=== PATIENT | female | born 1955 | race Caucasian/White ===

== ENCOUNTER 2016-03-03 11:42 | Emergency (ER) | payer OTHER ==
[~2016-03-03] VITALS: Ht 170.2 cm; Wt 77.1 kg
[~2016-03-03 11:42] MED LIST: ASPI-484 PO; CLOP75TA52 PO; LEVO125T PO; LISI10TA2 PO; METO50TA4 PO; SIMV40TA PO; SIMV80TA PO
--- NOTE | 2016-03-03 11:46 | NUR ---
ARRIVAL PATIENT ARRIVED TO ED3 VIA W/C, C/O OF CHEST PAIN AND SHORTNESS OF BREATH TODAY, PATIENT STATES SHE HAS SEEN DOCTOR MAGGI AND STENTS PLACED LAST IN OCT. CHEST PAIN CONTINUED,CAME TO ED FOR FURTHER EVAL BY EDP. NO DISTRESS NOTED, NO ASPIRIN OR MORPHINE GIVEN DUE TO ALLERGIES.
--- NOTE | 2016-03-03 11:50 | ER.PDOC ---
General Chief Complaint: Requesting Medical Care Stated Complaint: CP Time seen by MD: 11:46 Source: patient Exam Limitations: no limitations History of Present Illness Initial Comments Chest discomfort for the last several days, today she developed chest pain, radiation to jaw and shoulders at times. now only tightness on her chest, some SOB and nausea Timing/Duration: 1-3 hours Severity/Quality: moderate Radiation: jaw, arms, neck, shoulders Prior CP/Workup: Cardiac Cath Nitro Today/Relief: No Nitro Taken Today Aspirin Today: No Aspirin Today Associated Symptoms: nausea/vomiting, shortness of breath Prior symptoms/Treatment: Similar symptoms previous Allergies: Coded Allergies: aspirin (Verified Allergy, Unknown, Swelling, 04/07/15) morphine (Verified Allergy, Unknown, ITCHING, 04/07/15) Home Meds Active Scripts Simvastatin (Zocor)80 Mg Tablet1 Tab PO DAILY #30 TAB Ref 4 Prov:ANNI TURNER MD 11/21/15 Reported Medications Clopidogrel Bisulfate (Plavix)75 Mg Tablet1 Tab PO DAILY ANTIPLATELET #90 TAB Ref 1 04/10/15 Aspirin (Aspir 81)81 Mg Tablet.dr1 Tab PO DAILY #30 TAB Ref 5 04/10/15 Levothyroxine Sodium (Synthroid)125 Mcg Tablet1 Tab PO DAILY THYROID #30 TAB Ref 5 04/10/15 Lisinopril 10 Mg Tablet1 Tab PO DAILY BLOOD PRESSURE #30 TAB Ref 5 04/10/15 Metoprolol Succinate (Toprol Xl)50 Mg Tab.er.24h1 Tab PO DAILY BLOOD PRESSURE # 30 TAB Ref 5 04/10/15 Past Medical History Surgical History: cardiac cath, appendectomy, neck, stent, shoulder Constitutional: see HPI EENTM: see HPI Respiratory: see HPI Cardiovascular: see HPI Gastrointestinal: see HPI Genitourinary: see HPI Musculoskeletal: see HPI Skin: see HPI Psychiatric/Neurological: see HPI Endocrine: see HPI Hematologic/Lymphatic: see HPI Physical Exam General Appearance: No Apparent Distress, WD/WN HEENT: PERRL/EOMI, Normal ENT Inspection, TMs Normal, Pharynx Normal Neck: Non-Tender, Full Range of Motion, Supple, Normal Inspection Respiratory: chest non-tender, lungs clear, normal breath sounds, no respiratory distress, no accessory muscle use Cardiovascular: Normal Peripheral Pulses, Regular Rate, Rhythm, No Edema, No Gallop, No JVD, No Murmur Gastrointestinal: Normal Bowel Sounds, No Organomegaly, No Pulsatile Mass, Non Tender, Soft Extremities: Normal Range of Motion, Non-Tender, Normal Inspection, No Pedal Edema, No Calf Tenderness, Normal Capillary Refill Neurologic/Psychiatric: 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
--- NOTE | 2016-03-03 11:51 | NUR ---
LAB LAB AT BEDSIDE
--- NOTE | 2016-03-03 11:51 | NUR ---
RESPIRATORY RESPIRATORY AT BEDSIDE
[2016-03-03] MEDS ORDERED: NITROSTAT SL PRN (12:00)
[2016-03-03 12:08] LABS: BASOPHIL % 0.3 % (0.0-0.2); EOSINOPHIL # 0.2 10^3/uL (0.0-0.2); EOSINOPHIL % 2.3 % (0.0-5.0); HEMOGLOBIN 13.8 g/dL (12.0-15.0); LYMPHOCYTES # 2.1 10^3/uL (1.0-4.8); LYMPHOCYTES % 30.7 % (24.0-44.0); MEAN CELL HGB CONCENTRATION 32.9 g/dL (33-37); MEAN CORP VOLUME 94.2 fL (78-100); MEAN PLATELET VOLUME 10.9 fL (7.8-11.0); MONOCYTES # 0.5 10^3/uL (0.3-0.8); MONOCYTES % 7.5 % (5.0-12.0); NEUTROPHIL # 4.1 10^3/uL (1.8-7.7); NEUTROPHILS % 59.1 % (41.0-85.0); RED CELL DISTRIBUTION WIDTH 12.4 % (11.5-14.5); WHITE BLOOD CELL 6.9 10^3/uL (4.5-11.0)
[2016-03-03 12:35] LABS: CARBON DIOXIDE 25.6 mmol/L (20.0-32); GLUCOSE 121 mg/dL (70-110)
[2016-03-03 12:36] LABS: ALANINE AMINOTRANSFERASE(ML) 23 U/L (12-78); ALKALINE PHOSPHATASE 65 U/L (50-136); ASPARTATE AMINO TRANSFERASE 18 U/L (0-35); CALCIUM 8.5 mg/dL (8.4-10.5)
--- NOTE | 2016-03-03 12:42 | DIREP ---
PROCEDURE:CHEST 1 VIEW COMPARISON:[facility], CR, XRAY CHEST SINGLE VW, 11/18/2015, 03:14 PM. INDICATIONS:CP FINDINGS: LUNGS/PLEURA:No significant pulmonary parenchymal abnormalities. No effusions. VASCULATURE:Normal. Unremarkable pulmonary vasculature. CARDIAC:Normal. No cardiac silhouette abnormality or cardiomegaly. MEDIASTINUM:Normal. No visible mass or adenopathy. BONES:Previously resected right clavicular head. OTHER:Negative. CONCLUSION:No acute cardiopulmonary process. Dictated by: Jared Godwin M.D. on 03/03/2016 at 12:41 PM
--- NOTE | 2016-03-03 12:52 | NUR ---
DR MAGGI MONTANO ON THE PHONE WITH DR TAY
[2016-03-03 13:01] VITALS: BP 136/86
--- NOTE | 2016-03-03 13:01 | NUR ---
IV 20G TO RIGHT INNER WRIST D/C'D TIP INTACT, NO SIGN OF INFILTRATION NOTED. AWAITING DISCHARGE INSTRUCTIONS.
[2016-09-10] MEDS ORDERED: [UNRECOGNIZED DRUG - CODE] PO (11:45)
== END 2016-03-03 13:05 | disposition home or self-care (01) ==
LOC: ER 11:42
DX: R07.9 Chest pain, unspecified (principal); R11.2 Nausea with vomiting, unspecified; Z88.6 Allergy status to analgesic agent; Z88.5 Allergy status to narcotic agent; Z79.82 Long term (current) use of aspirin; Z79.899 Other long term (current) drug therapy
CPT/HCPCS: 36415; 71010; 80053; 82550; 83880; 84484; 85025; 85610; 85730; 93005; 99285; 71045

== ENCOUNTER 2016-09-10 11:00 | Inpatient (IN) | payer SELFPAY ==
[~2016-09-10] VITALS: Ht 170.2 cm; Wt 79.8 kg
[~2016-09-10 11:00] MED LIST changes: +CLOP75TA22 PO; -CLOP75TA52 PO
[2016-09-10] MEDS ORDERED: BUSP10TA PO (11:45)
[2016-09-10] MEDS ORDERED: SERT100T PO (11:45)
[2016-09-10] MEDS ORDERED: FAMO-75 PO (11:45)
[2016-09-10] MEDS ORDERED: TRAZ50TA18 PO (11:45)
[2016-09-10] MEDS ORDERED: [UNRECOGNIZED DRUG - CODE] PO (11:45)
[2016-09-10 12:01] VITALS: BP 129/72
[2016-09-10 12:45] LABS: BASOPHIL % 0.6 % (0.0-0.2); EOSINOPHIL # 0.1 10^3/uL (0.0-0.2); EOSINOPHIL % 1.7 % (0.0-5.0); HEMATOCRIT 44.7 % (36.0-46.0); HEMOGLOBIN 15.1 g/dL (12.0-15.0); LYMPHOCYTES # 2.6 10^3/uL (1.0-4.8); LYMPHOCYTES % 38.8 % (24.0-44.0); MEAN CELL HGB 31.5 pg (26-34); MEAN CELL HGB CONCENTRATION 33.8 g/dL (33-37); MEAN CORP VOLUME 93.1 fL (78-100); MONOCYTES # 0.5 10^3/uL (0.3-0.8); MONOCYTES % 7.3 % (5.0-12.0); NEUTROPHIL # 3.4 10^3/uL (1.8-7.7); NEUTROPHILS % 51.4 % (41.0-85.0); RED CELL DISTRIBUTION WIDTH 12.9 % (11.5-14.5); WHITE BLOOD CELL 6.6 10^3/uL (4.5-11.0)
--- NOTE | 2016-09-10 12:48 | DIREP ---
PROCEDURE:CHEST 2 VIEWS COMPARISON:[facility], CR, XRAY CHEST SINGLE VW, 03/03/2016, 11:42 AM. INDICATIONS:PRE OP LAVH FINDINGS: LUNGS/PLEURA:No significant pulmonary parenchymal abnormalities. No effusions. VASCULATURE:Normal. Unremarkable pulmonary vasculature. CARDIAC:Normal. No cardiac silhouette abnormality or cardiomegaly. MEDIASTINUM:Normal. No visible mass or adenopathy. BONES:Acromioplasty of the distal right clavicle is again noted. OTHER:Negative. CONCLUSION:No active or acute cardiopulmonary disease is seen. Dictated by: Camacho Amador M.D. on 09/10/2016 at 12:47 PM
[2016-09-10 13:05] LABS: BILIRUBIN,URINE NEGATIVE (NEGATIVE); UROBILINOGEN,URINE NORMAL (NEGATIVE)
[2016-09-10 13:28] LABS: APPEARANCE,URINE CLEAR (CLEAR); UA COLOR YELLOW (YELLOW)
[2016-09-10 13:35] LABS: CALCIUM 9.4 mg/dL (8.4-10.5); CARBON DIOXIDE 27.8 mmol/L (20.0-32)
[2016-09-10 14:01] LABS: WBC,URINE TNTC WBC/HPF (0-2)
[2016-09-16] VITALS (22 sets, daily range): BP systolic 84–140; BP diastolic 40–88
--- NOTE | 2016-09-16 01:38 | NUR ---
PAIN REASSESSMENT Patient lying in bed and resting - Patient reports pain medication effective and denies the need foor.
[2016-09-16] MEDS ORDERED: ANCEF ONE (05:19)
[2016-09-16] MEDS ORDERED: NS 100ML 100 ML IV ONE ×2 (05:20→07:22)
[2016-09-16] MEDS: LACTATED RINGERS 1,000 ML IV SCH ×2 (05:53→15:35)
[2016-09-16] MEDS ORDERED: ANCEF 1 GM in NS 100ML 100 ML IV ONE (06:00)
[2016-09-16] MEDS ORDERED: SODIUM CHLORIDE IR ONE (07:22)
[2016-09-16] MEDS ORDERED: TORADOL ONE ×3 (07:33→17:19)
[2016-09-16] MEDS ORDERED: ZEMURON IV ONE (07:33)
[2016-09-16] MEDS ORDERED: XYLOCAINE ONE (07:33)
[2016-09-16] MEDS ORDERED: DECADRON ONE (07:33)
[2016-09-16] MEDS ORDERED: DILAUDID ONE (07:34)
[2016-09-16] MEDS ORDERED: VERSED ONE (07:34)
[2016-09-16] MEDS ORDERED: NEOSTIGMINE ONE (07:34)
[2016-09-16] MEDS ORDERED: SUBLIMAZE ONE (07:34)
[2016-09-16] MEDS ORDERED: ZOFRAN ONE (07:34)
[2016-09-16] MEDS ORDERED: QUELICIN ONE (07:34)
[2016-09-16] MEDS ORDERED: DIPRIVAN IV ONE (07:35)
[2016-09-16] MEDS ORDERED: DURAMORPH ONE (07:35)
[2016-09-16] MEDS ORDERED: SODIUM CHLORIDE IRR BAG 1,000 ML ONE (08:47)
[2016-09-16] MEDS ORDERED: SENSORCAINE-MPF 0.5% VIAL ONE (08:47)
[2016-09-16] MEDS ORDERED: OXY-IR PO PRN (09:30)
[2016-09-16] MEDS ORDERED: BUSPAR PO PRN (09:30)
--- NOTE | 2016-09-16 09:30 | PRM.CONS ---
History of Present Illness Reason for Consultation: perioperative cardiac evaluation History of Present Illness this is a 61-year-old lady with extensive coronary artery disease, hypertension , hyperlipidemia and history of prior smoking. Most recent cardiac intervention was a mentoplasty performed in October 2015. Patient is admitted under Dr. Howard's care for mesh repair procedure under [place]. The patient was seen and evaluated preoperatively, clearance was given. Patient has been off anticoagulation 5-7 days prior to the procedure. She was stable without symptoms, the patient's operative cardiac risk profile is considered mild to moderate. Past Medical History Cardiovascular: CAD, HTN Pulmonary: Asthma, Bronchitis, COPD Renal/: Chronic Renal Insuff ( mild) Ab: Cooperative/Pleasant Hx Last Menstrual Period: OCCASIONAL BLEEDING D/T INFECTED MESH Past Social History Smoke: Quit ( history of extensive smoking the past) Alcohol: rare Lives: with Family Travel Hx EBOLA RISK:Travel to/contact w: No Review of Systems ENT: No: Ear pain, Ear discharge, Nose pain, Nose discharge, Nose congestion, Mouth pain, Mouth swelling, Throat pain, Throat swelling, Other Respiratory: No: Cough, Dry, Shortness of breath, SOB with excertion, Wheezing , Hemoptysis, Pleuritic Pain, Sputum, Wheezing, Other Cardiovascular: No: Chest Pain, Palpitations, Orthopnea, Paroxysmal Noc. Dyspnea, Edema, Lt Headedness, Other Allergies: Coded Allergies: aspirin (Verified Allergy, Severe, Anaphylaxis Shock, 09/10/16) Scheduled Clopidogrel Bisulfate (Plavix), 1 TAB PO DAILY, (Reported) Famotidine (Pepcid), 1 TAB PO BIDAC, (Reported) Levothyroxine Sodium (Synthroid), 1 TAB PO DAILY, (Reported) Lisinopril (Lisinopril), 1 TAB PO DAILY, (Reported) Metoprolol Succinate (Toprol Xl), 1 TAB PO DAILY, (Reported) Sertraline Hcl (Zoloft), 1 TAB PO DAILY, (Reported) Simvastatin (Zocor), 1 TAB PO DAILY Trazodone Hcl (Trazodone Hcl), 1 TAB PO HS, (Reported) Scheduled PRN Buspirone Hcl (Buspirone Hcl), 1 TAB PO BID PRN for ANXIETY, (Reported) Oxycodone Hcl/Acetaminophen (Percocet 7.5-325 Mg Tablet), 1 TAB PO QID PRN for PAIN, (Reported) Discontinued Medications Aspirin (Aspir 81), 1 TAB PO DAILY, (Reported) Discontinued Reason: No Longer Taking VTE VTE Risk Total Score: >5 VTE Risk Score VTE Risk: Score 0-1 = Low Risk (Aggressive mobilization; early ambulation; no VTE prophylaxis required) Score 2: Moderate Risk (Intermittent/Pneumatic Compression Device OR Lovenox/Heparin/Coumadin) Score 3-4: High Risk (Intermittent/Pneumatic Compression Device AND Lovenox/Heparin/Coumadin) Score > or =5: Highest Risk (Intermittent/Pneumatic Compression Device AND Lovenox/Heparin/Coumadin) VTE VTE Present on Admission: No Currently receiving anticoagul: No VTE Risk Total Score: >5 Exam Vital Signs Vital Signs Date Time Temp Pulse Resp B/P (MAP) Pulse Ox O2 Delivery O2 Flow Rate FiO2 09/16/16 05:42 Room Air 09/16/16 05:42 97.7 66 18 130/81 (97) 94 General Appearance: Alert, Oriented X3, Cooperative HEENT: Atraumatic, PERRLA Respiratory: Clear to auscultation ( find diffuse rhonchi), Normal air movement Cardiovascular: Regular rate, Normal S1, Normal S2 Abdominal: Normal bowel sounds, No tenderness Extremities: No clubbing, No cyanosis, No edema Skin: No breakdown Assessment/Plan Assessment/Plan Assessment/Plan - okay to proceed with gynecology procedure. - Notable UTI on preoperative - UA -please resume cardiac medications postoperatively in the absence of any contraindication thank you Dr. Howard for your kind consultation Problems: Patient History: Cerebrovascular disorder 32 MOTHER Chronic obstructive pulmonary disease 32 MOTHER FH: coronary artery disease 32 MOTHER G8 BROTHER FH: heart attack 32 MOTHER Hypertension 32 MOTHER G8 BROTHER No known health problems 33 FATHER, , Age:58 G8 BROTHER G8 BROTHER G8 BROTHER G8 BROTHER G8 SISTER G8 SISTER 19 CHILD 19 CHILD 19 CHILD No Family History of: Alzheimer's disease Asthma Congestive heart failure Diabetes insipidus Diabetes mellitus Parkinson's disease ANNI TAY MD Sep 16, 2016 09:30
[2016-09-16] MEDS ORDERED: PREMARIN VG ONE (09:55)
[2016-09-16] MEDS: ZOLOFT PO SCH (10:24)
[2016-09-16] MEDS ORDERED: TYLENOL PO PRN (10:30)
[2016-09-16] MEDS ORDERED: SUBLIMAZE IV PRN (11:30)
[2016-09-16] MEDS ORDERED: NORCO 5 MG PO PRN ×2 (11:30)
[2016-09-16] MEDS ORDERED: TRANDATE IV PRN (11:30)
[2016-09-16] MEDS ORDERED: ZOFRAN IV PRN (11:30)
[2016-09-16] MEDS ORDERED: DILAUDID IV PRN (11:30)
--- NOTE | 2016-09-16 11:40 | NUR ---
REC FROM PACY PT TO ROOM 325 FROM PACU. AWAKE, ALERT O X3. SKIN PINK W/D. HR REG. IV OF LR PLACED ON PUMP AND INF AT 125 MLS/HR. SITE RT HAND 20 CLEAR. ABD WITH 3 PUNCTURE SITES COVERED WITH DERMABOND, CLEAR WITH NO BLEEDING. BS HYPO. MOD AMT VB. PAD CHANGED AND PERICARE GIVEN. CONCEPCION PATENT AND DRAINING CLEAR YELLOW URINE. SCD'S ON BILAT AND CONNECTED TO PUMP AND ON AT THIS TIME. DENIES PAIN. O2 ON AT 2 L N/C. B/P CUFF CONNECTED AND SET FOR Q 15 MIN AND ALARMS SET. CONT O2 SAT MONITOR IN PLACE WITH SATS AT 94% ON O2.ORIENTED TO ROOM. SR UP X 2 AND CL IN REACH. FAMILY IN TO ROOM AT THIS TIME.
--- NOTE | 2016-09-16 12:00 | NUR ---
ICE CHIPS SERVED.
--- NOTE | 2016-09-16 13:00 | NUR ---
DR. ROLON HERE IN TO SEE PT AND DISCUSS SURGERY.PT AND FAMILY VOICE UNDERSTANDING.
[2016-09-16] MEDS ORDERED: MORPHINE SULFATE ONE ×4 (13:09→22:25)
[2016-09-16] MEDS ORDERED: EPHEDRINE SULFATE ONE (13:13)
[2016-09-16] MEDS: MORPHINE SULFATE IV PRN ×3 (13:15→22:30)
--- NOTE | 2016-09-16 13:15 | NUR ---
PAIN MED GIVEN PERICARE GIVEN. SMALL AMT OF VB. PAD CHANGED. REPOS FOR COMFORT. IS DONE UP TO 1200 X 5. QUENTIN WELL. MORPHINE 2 MG IVP GIVEN FOR C/O PAIN 09/06. C/O FEELING LOTS OF PRESSURE. REMINDED PT SHE HAS VAGINAL PACKING IN.
--- NOTE | 2016-09-16 14:30 | NUR ---
VISITING WITH FAMILY. DENIES PAIN OR NEEDS. SIPPING TEA.
[2016-09-16] MEDS ORDERED: LACTATED RINGERS 1,000 ML ONE ×2 (15:10→23:46)
--- NOTE | 2016-09-16 15:30 | NUR ---
PERICARE PAD CHANGED WITH SMALL AMT VB. PANTIES ON. ALSO HAD SMALL AMT OF BLEEDING FROM UMBILICAL PUNCTURE SITE. GOWN CHANGED AND SITE COVERED WITH 4X4 AND PAPER TAPE. REPOS IN BED. IS DONE. CONCEPCION EMPTIED OF 300 ML CLEAR YELLOW URINE. 1000 ML LR UP AND IVPB ANCEF HUNG. DECLINED PEPCID.
[2016-09-16] MEDS: ANCEF 1 GM in NS 100ML 100 ML IV SCH (15:34)
[2016-09-16] MEDS: PEPCID PO SCH (16:08)
[2016-09-16] MEDS: TORADOL IV SCH (17:27)
--- NOTE | 2016-09-16 17:30 | NUR ---
DR. ROLON HERE IN TO SEE PT AND FAMILY. POC DISCUSSED. INFORMED OF BLEEDING FROM PUNCTURE AT UMBILICUS EARLIER AND COVERED WITH 4X4 WITH NO FURTHER BLEEDING NOTED. ALSO PT WANTS TO GET UP LATER AND WALK IN LR. DR. ROLON STATES SHE MAY GET UP LATER THIS EVENING WITH ASSIST. VISITING WITH FAMILY NOW.
--- NOTE | 2016-09-16 17:45 | NUR ---
CL LIQ DIET SERVED.
--- NOTE | 2016-09-16 19:00 | NUR ---
REPORT Received report from Lawanda Coles, ANDREW - transfer of patient care.
--- NOTE | 2016-09-16 19:00 | NUR ---
REPORT GIVEN PT READY FOR PAIN MED.
[2016-09-16] MEDS ORDERED: MORPHINE SULFATE IV ONE (19:18)
--- NOTE | 2016-09-16 19:18 | NUR ---
ASSESSMENT - PAIN RN VS taken and assessment complete. Patient requesting pain medication for lower abd and pelvic cramping area of an 8 on a scale of 1-10 . Patient given 2 mg morphine
--- NOTE | 2016-09-16 19:35 | NUR ---
PAIN MED EFFECTIVE Patient reports pain medication effective at this time. Lying in bed resting - Call light with in reach - Reinforced fall precautions since patient post op day1. Patient verbalized understanding of all.
--- NOTE | 2016-09-16 20:15 | NUR ---
AMBULATION - BORA CARE Assisted patient up to bathroom - Bora care given - Pads changed - Assisted patient back to bed. Patient denies any further needs at this time.
[2016-09-16] MEDS ORDERED: ZOCOR PO SCH (21:00)
[2016-09-16] MEDS ORDERED: DESYREL PO SCH (21:00)
[2016-09-16] MEDS ORDERED: ZOCOR ONE ×2 (22:00→22:02)
[2016-09-16] MEDS ORDERED: DESYREL ONE (22:03)
--- NOTE | 2016-09-16 22:30 | NUR ---
C/O PAIN AT "6", MORPHINE 2MG IVP ADMINISTERED
--- NOTE | 2016-09-16 22:45 | NUR ---
VERBALIZES ANALGESIA EFFECTIVE
[2016-09-16] MEDS ORDERED: ULTRAM ONE (23:40)
[2016-09-17] MEDS ORDERED: TORADOL ONE ×3 (00:11→11:25)
[2016-09-17 00:15] VITALS: BP 89/40
[2016-09-17] MEDS: ANCEF 1 GM in NS 100ML 100 ML IV SCH ×2 (00:18→08:00)
[2016-09-17] MEDS: TORADOL IV SCH ×3 (00:18→11:49)
--- NOTE | 2016-09-17 00:18 | NUR ---
ANCEF, NEW BAG OF LR, AMBULATION Scheduled ancef given and new bag of LR initiated - Patient also given scheduled Toradol - Midnight VS taken - Patient assisted with repositioning to right lateral side with pillow beteen legs for comfort. Denies an further needs.
--- NOTE | 2016-09-17 02:15 | NUR ---
SLEEPING Patient appears to be sleeping - Resp even and non labored - No S/S of distress noted.
[2016-09-17 04:10] VITALS: BP 105/46
--- NOTE | 2016-09-17 04:10 | NUR ---
VS VS taken
--- NOTE | 2016-09-17 05:17 | NUR ---
LAB Lab here to draw blood.
[2016-09-17 05:34] LABS: BASOPHIL % 0.1 % (0.0-0.2); HEMATOCRIT 31.2 % (36.0-46.0); HEMOGLOBIN 10.4 g/dL (12.0-15.0); LYMPHOCYTES % 18.8 % (24.0-44.0); MEAN CELL HGB 31.6 pg (26-34); MEAN CELL HGB CONCENTRATION 33.3 g/dL (33-37); MEAN CORP VOLUME 94.8 fL (78-100); MEAN PLATELET VOLUME 10.8 fL (7.8-11.0); MONOCYTES # 0.7 10^3/uL (0.3-0.8); MONOCYTES % 6.8 % (5.0-12.0); NEUTROPHIL # 7.7 10^3/uL (1.8-7.7); NEUTROPHILS % 74.1 % (41.0-85.0); RED CELL DISTRIBUTION WIDTH 12.3 % (11.5-14.5); WHITE BLOOD CELL 10.4 10^3/uL (4.5-11.0)
--- NOTE | 2016-09-17 05:40 | NUR ---
REMOVAL CONCEPCION CATHETER Concepcion balloon deflated 10cc fluid - Concepcion catheter removed using aseptic technique. 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 Denies any further needs or questions.
--- NOTE | 2016-09-17 06:43 | NUR ---
REPORT Report given to day shift. Lawanda Coles RN
--- NOTE | 2016-09-17 07:00 | NUR ---
RESTING WITH EYES CLOSED. RESP REG. O2 IS OFF. IV PATENT. NO DISTRESS NOTED.
[2016-09-17 07:15] VITALS: BP 112/47
[2016-09-17 07:30] VITALS: BP 112/60
--- NOTE | 2016-09-17 07:30 | NUR ---
VS AND POT BUILDER COMPLETED.
--- NOTE | 2016-09-17 07:45 | NUR ---
UP TO B/R VOIDED WITHOUT DIFFICULTY. PERICARE DONE. PAD CHANGED. SCANT VB. STILL HAS PACKING IN. AMB BACK TO CHAIR. QUENTIN WELL.
--- NOTE | 2016-09-17 07:55 | NUR ---
ANCEF IV GIVEN ORDERED.
[2016-09-17] MEDS ORDERED: PEPCID ONE (07:59)
[2016-09-17] MEDS: PEPCID PO SCH (08:00)
--- NOTE | 2016-09-17 08:00 | NUR ---
BKF SERVED SITTING UP IN CHAIR FOR REG BKF TRAY.
[2016-09-17] MEDS ORDERED: SYNTHROID ONE (08:05)
[2016-09-17] MEDS ORDERED: TOPROL XL PO ONE (08:06)
[2016-09-17] MEDS ORDERED: ZESTRIL ONE (08:12)
[2016-09-17] MEDS ORDERED: ZOLOFT ONE (08:12)
[2016-09-17] MEDS ORDERED: PLAVIX ONE (08:13)
--- NOTE | 2016-09-17 08:30 | NUR ---
AMB IN HALLS QUENTIN WELL. BACK TO ROOM AND SITTING UP IN CHAIR. COFFEE SERVED. DENIES NEEDS.
[2016-09-17] MEDS ORDERED: NORCO 5 MG PO ONE (08:37)
--- NOTE | 2016-09-17 08:37 | NUR ---
NORCO 5/325 TWO GIVEN FOR PAIN PRIOR TO VAG PACKING BEING REMOVED. VISITING IN ROOM WITH DAUGHTER.
[2016-09-17] MEDS: ZOLOFT PO SCH (08:41)
[2016-09-17] MEDS ORDERED: ZESTRIL PO SCH (09:00)
[2016-09-17] MEDS ORDERED: TOPROL XL PO SCH (09:00)
[2016-09-17] MEDS ORDERED: SYNTHROID PO SCH (09:00)
[2016-09-17] MEDS ORDERED: PLAVIX PO SCH (09:00)
--- NOTE | 2016-09-17 09:00 | NUR ---
HOLD PLAVIX UNTIL PACKING IS REMOVED NEW INSTRUCTIONS FROM DR. ROLON. ALL OTHER AM MEDS WERE GIVEN.
--- NOTE | 2016-09-17 09:31 | NUR ---
UP TO B/R VOIDING WITHOUT DIFFICULTY. BACK TO BED TO REST. DENIES PAIN OR NEEDS.
--- NOTE | 2016-09-17 10:13 | NUR ---
DR. ROLON HERE VAG PACKING REMOVED. PERICARE GIVEN. PAD AND PANTIES ON. MAY GIVE PLAVIX.
--- NOTE | 2016-09-17 10:15 | NUR ---
PLAVIX GIVEN. PT UP TO B/R. VOIDING WITHOUT DIFFICULTY. SCANT VB. PERICARE DONE. PAD AND PANTIES ON.
--- NOTE | 2016-09-17 11:00 | NUR ---
STATUS ISITORS HERE. PT UP TO AMB IN HALLS. QUENTIN WELL.
--- NOTE | 2016-09-17 12:00 | NUR ---
TORADOL GIVEN LUNCH SERVED.
[2016-09-17 12:30] VITALS: BP 88/64
--- NOTE | 2016-09-17 13:00 | NUR ---
DR. ROLON HERE. IN TO SEE HOW PT IS FEELING. STATES HE WILL COME BACK THIS AFTERNOON AND LET PT GO HOME. PT UP TO WALK IN HALLS AGAIN. DENIES PAIN OR NEEDS.
[2016-09-17 13:26] VITALS: BP 100/60
--- NOTE | 2016-09-17 14:55 | NUR ---
DR. ROLON HERE. PT MAY GO HOME. RX FOR ABX SENT TO WMT. STATES SHE HAS ENOUGH PAIN PILLS TO LAST FOR A WEEK AND IF NOT PT'S DAUGHTER WILL RETURN TO OFFICE AND GET ANOTHER RX. PT WILL CALL TO SCHEDULE POST OP APPT FOR ONE WEEK. INSTRUCTED NO TUB BATHS OR SWIMMING. VOICES UNDERSTANDING OF ALL INSTRUCTIONS DR. ROLON TOLD HER.
[2016-09-17] MEDS ORDERED: METR500T PO (15:03)
--- NOTE | 2016-09-17 15:04 | PRM.DC ---
Discharge Summary Date of Arrival on Unit: Sep 10, 2016 Patient History: Cerebrovascular disorder 32 MOTHER Chronic obstructive pulmonary disease 32 MOTHER FH: coronary artery disease 32 MOTHER G8 BROTHER FH: heart attack 32 MOTHER Hypertension 32 MOTHER G8 BROTHER No known health problems 33 FATHER, , Age:58 G8 BROTHER G8 BROTHER G8 BROTHER G8 BROTHER G8 SISTER G8 SISTER 19 CHILD 19 CHILD 19 CHILD No Family History of: Alzheimer's disease Asthma Congestive heart failure Diabetes insipidus Diabetes mellitus Parkinson's disease History Present Illness: General: Alert HEENT: Atraumatic Neck: Supple Lungs: Clear to auscultation Heart: Regular rate Abdomen: Normal bowel sounds Extremities: No clubbing Skin: No rashes Neuro: Normal gait Psych/Mental Status: Mental status NL Scheduled Clopidogrel Bisulfate (Plavix), 1 TAB PO DAILY, (Reported) Famotidine (Pepcid), 1 TAB PO BIDAC, (Reported) Levothyroxine Sodium (Synthroid), 1 TAB PO DAILY, (Reported) Lisinopril (Lisinopril), 1 TAB PO DAILY, (Reported) Metoprolol Succinate (Toprol Xl), 1 TAB PO DAILY, (Reported) Metronidazole (Flagyl), 500 MG PO BID Sertraline Hcl (Zoloft), 1 TAB PO DAILY, (Reported) Simvastatin (Zocor), 1 TAB PO DAILY Trazodone Hcl (Trazodone Hcl), 1 TAB PO HS, (Reported) Scheduled PRN Buspirone Hcl (Buspirone Hcl), 1 TAB PO BID PRN for ANXIETY, (Reported) Oxycodone Hcl/Acetaminophen (Percocet 7.5-325 Mg Tablet), 1 TAB PO QID PRN for PAIN, (Reported) Discontinued Medications Aspirin (Aspir 81), 1 TAB PO DAILY, (Reported) Discontinued Reason: No Longer Taking Course Blood Pressure Systolic: 100 Blood Pressure Diastolic: 60 Blood Pressure Mean: 72 QUINCY ROLON MD Sep 17, 2016 15:04
--- NOTE | 2016-09-17 15:05 | NUR ---
STATUS PT REQ TO HAVE MORPHINE BEFORE THE RIDE HOME. DR. ROLON NOTIFIED AND PT MAY HAVE ONE MORE DOSE OF MORPHINE PRIOR TO LEAVING.
[2016-09-17] MEDS ORDERED: MORPHINE SULFATE ONE (15:20)
--- NOTE | 2016-09-17 15:25 | NUR ---
MORPHINE 2 MG IVP GIVEN FOR PAIN PRIOR TO PT GOING HOME. SL DC'D INTACT
--- NOTE | 2016-09-17 16:00 | NUR ---
DISMISS PT DISMISSED IN W/C WITH DAUGHTER. STABLE CONDITION. DENIES PAIN.
== END 2016-09-17 16:00 | disposition home or self-care (01) | DRG 742 ==
LOC: LND 09-16 00:46
PROVIDERS: ADMIT Obstetrics & Gynecology; ATTEND Obstetrics & Gynecology
PROC: 0UT9FZZ Resection of Uterus, Via Natural or Artificial Opening With Percutaneous Endoscopic Assistance (ICD-10-PCS; principal; 2016-09-17)
PROC: 0UT7FZZ Resection of Bilateral Fallopian Tubes, Via Natural or Artificial Opening With Percutaneous Endoscopic Assistance (ICD-10-PCS; 2016-09-17)
PROC: 0WP Anatomical Regions, General, Removal (ICD-10-PCS; 2016-09-17)
DX: T83.711A Erosion of implanted vaginal mesh to surrounding organ or tissue, initial encounter (principal); N39.0 Urinary tract infection, site not specified; I25.10 Atherosclerotic heart disease of native coronary artery without angina pectoris; J44.9 Chronic obstructive pulmonary disease, unspecified; Z98.51 Tubal ligation status; Z90.89 Acquired absence of other organs; Z95.1 Presence of aortocoronary bypass graft; E78.5 Hyperlipidemia, unspecified; J45.909 Unspecified asthma, uncomplicated; I12.9 Hypertensive chronic kidney disease with stage 1 through stage 4 chronic kidney disease, or unspecified chronic kidney disease; N18.9 Chronic kidney disease, unspecified; F41.9 Anxiety disorder, unspecified; Z79.82 Long term (current) use of aspirin; Z82.49 Family history of ischemic heart disease and other diseases of the circulatory system; Z87.891 Personal history of nicotine dependence; Z88.6 Allergy status to analgesic agent; Z88.5 Allergy status to narcotic agent; Z88.8 Allergy status to other drugs, medicaments and biological substances
CPT/HCPCS: 36415; 71020; 80053; 81000; 85025; 85610; 85730; 87086; 88302; 88305; 88307; 93005; A4338; J0330; J0690; J1100; J1170; J1885; J2250; J2270; J2405; J3010; J3490; J7030; J7050; J7120; J2274; J2710

== ENCOUNTER 2016-12-12 10:18 | Inpatient (IN) | payer OTHER, SELFPAY ==
[~2016-12-12] VITALS: Ht 170.2 cm; Wt 83.0 kg
[~2016-12-12 10:18] MED LIST changes: +BUSP10TA PO; -CLOP75TA22 PO; +CLOP75TA52 PO; +FAMO-75 PO; +METR500T PO; +SERT100T PO; +TRAZ50TA18 PO; +[UNRECOGNIZED DRUG - CODE] PO
[2016-12-12] MEDS ORDERED: PLAVIX PO STA (10:40)
--- NOTE | 2016-12-12 10:44 | ER.PDOC ---
General Chief Complaint: Chest Pain-Cardiac Nature Stated Complaint: CHEST PAIN Time seen by MD: 10:41 Source: patient Exam Limitations: no limitations History of Present Illness Initial Comments Chest pain for 3-4 days, rash right face and posterior neck for 2 days. Radiation: no radiation Prior CP/Workup: Cardiac Cath, Echocardiography, Heart Attack Associated Symptoms: nausea/vomiting, shortness of breath Allergies: Coded Allergies: aspirin (Verified Allergy, Severe, Anaphylaxis Shock, 09/10/16) morphine (Verified Allergy, Severe, THROAT WILL CLOSE,STOP BREATHING, ) Home Meds Active Scripts Metronidazole (FLAGYL) 500 Mg Tablet, 500 MG PO BID for 7 Days, #20 TAB Prov:QUINCY ROLON MD 09/17/16 Simvastatin (ZOCOR) 80 Mg Tablet, 1 TAB PO DAILY, #30 TAB 4 Refills Prov:ANNI TURNER MD 11/21/15 Reported Medications Sertraline Hcl (ZOLOFT) 100 Mg Tablet, 1 TAB PO DAILY, #30 TAB 5 Refills 09/10/16 Famotidine (PEPCID) 20 Mg Tablet, 1 TAB PO BIDAC, #60 TAB 3 Refills 09/10/16 Oxycodone Hcl/Acetaminophen (PERCOCET 7.5-325 MG TABLET) 1 Each Tablet, 1 TAB PO QID Y for PAIN, #120 TAB 09/10/16 Buspirone Hcl (BUSPIRONE HCL) 10 Mg Tablet, 1 TAB PO BID Y for ANXIETY, #60 TAB 1 Refill 09/10/16 Trazodone Hcl (TRAZODONE HCL) 50 Mg Tablet, 1 TAB PO HS, #30 TAB 1 Refill 09/10/16 Clopidogrel Bisulfate (PLAVIX) 75 Mg Tablet, 1 TAB PO DAILY for ANTIPLATELET, # 90 TAB 1 Refill 04/10/15 Levothyroxine Sodium (SYNTHROID) 125 Mcg Tablet, 1 TAB PO DAILY for THYROID, # 30 TAB 5 Refills 04/10/15 Lisinopril (LISINOPRIL) 10 Mg Tablet, 1 TAB PO DAILY for BLOOD PRESSURE, #30 TAB 5 Refills 04/10/15 Metoprolol Succinate (TOPROL XL) 50 Mg Tab.er.24h, 1 TAB PO DAILY for BLOOD PRESSURE, #30 TAB 5 Refills 04/10/15 Past Medical History Medical History: angina, cardiac problems, hypertension Surgical History: cardiac cath, appendectomy, hysterectomy, neck, stent, shoulder, tubal LMP (females 10-50): hysterectomy Social History Smoking: non-smoker Alcohol Use: rarely Drug Use: none Constitutional: no symptoms reported Respiratory: see HPI Cardiovascular: see HPI Gastrointestinal: see HPI Genitourinary: no symptoms reported Musculoskeletal: no symptoms reported All Other Systems: Reviewed and Negative Physical Exam General Appearance: No Apparent Distress, WD/WN Neck: Non-Tender, Full Range of Motion, Supple, Normal Inspection Respiratory: chest non-tender, lungs clear, normal breath sounds, no respiratory distress, no accessory muscle use Cardiovascular: Normal Peripheral Pulses, Regular Rate, Rhythm, No Edema, No Gallop, No JVD, No Murmur Gastrointestinal: Normal Bowel Sounds, No Organomegaly, No Pulsatile Mass, Non Tender, Soft Extremities: Normal Range of Motion, Non-Tender, Normal Inspection, No Pedal Edema, No Calf Tenderness, Normal Capillary Refill 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 Turner Problem Qualifiers Additional Impression: Herpes zoster Herpes zoster complications: without complications Qualified Codes: B02.9 - Zoster without complications MARLYN AKERS MD Dec 12, 2016 10:44
[2016-12-12 10:45] LABS: BASOPHIL % 0.4 % (0.0-0.2); EOSINOPHIL # 0.2 10^3/uL (0.0-0.2); EOSINOPHIL % 2.3 % (0.0-5.0); HEMOGLOBIN 14.4 g/dL (12.0-15.0); LYMPHOCYTES # 2.8 10^3/uL (1.0-4.8); MEAN CELL HGB 30.6 pg (26-34); MEAN CELL HGB CONCENTRATION 33.1 g/dL (33-37); MEAN CORP VOLUME 92.4 fL (78-100); MEAN PLATELET VOLUME 10.7 fL (7.8-11.0); MONOCYTES # 0.7 10^3/uL (0.3-0.8); MONOCYTES % 9.2 % (5.0-12.0); RED CELL DISTRIBUTION WIDTH 12.5 % (11.5-14.5); WHITE BLOOD CELL 7.7 10^3/uL (4.5-11.0)
--- NOTE | 2016-12-12 10:51 | DIREP ---
PROCEDURE:CHEST 1 VIEW COMPARISON:[facility], CR, XRAY CHEST 2 VWS, 09/10/2016, 12:40 PM. [facility], CR, XRAY CHEST SINGLE VW, 03/03/2016, 11:42 AM. INDICATIONS:CHEST PAIN FINDINGS: Portable frontal view of the chest is provided. LUNGS/PLEURA:No significant pulmonary parenchymal abnormalities. No effusion or pneumothorax. VASCULATURE:Normal. Unremarkable pulmonary vasculature. CARDIAC:Normal. No cardiac silhouette abnormality or cardiomegaly. MEDIASTINUM:Stable mildly tortuous and calcified thoracic aorta. BONES:Stable postoperative changes of right distal clavicular resection. Stable mild degenerative changes involving the left acromioclavicular joint and thoracic spine. No acute abnormality. OTHER:Negative. CONCLUSION: No acute cardiopulmonary abnormality. There is no significant change as compared with the previous examination. Dictated by: Julian Lew M.D. On 12/12/2016 at 10:50 AM
[2016-12-12] MEDS ORDERED: PLAVIX ONE (10:54)
[2016-12-12] MEDS ORDERED: NITROSTAT SL PRN (11:00)
[2016-12-12 11:09] LABS: ALANINE AMINOTRANSFERASE 22 U/L (12-78); ALKALINE PHOSPHATASE 69 U/L (50-136); ASPARTATE AMINO TRANSFERASE 19 U/L (0-35); CALCIUM 9.5 mg/dL (8.4-10.5); CARBON DIOXIDE 28.4 mmol/L (20.0-32); GLUCOSE 90 mg/dL (70-110)
[2016-12-12] MEDS ORDERED: ZOVIRAX PO STA (12:24)
[2016-12-12] MEDS ORDERED: LOVENOX SQ STA (12:24)
[2016-12-12] MEDS ORDERED: NITRO-BID TD STA (12:24)
--- NOTE | 2016-12-12 12:24 | PRM.ACF1 ---
Date and Time Date and Time Time: 12:24 Admission Criteria Forms CHEST PAIN Clinical Indications for Admission to Inpatient Care ([place]/check or initial the applicable condition/criteria) Admission is indicated for chest pain and ANY ONE of the following (1)(2)(3)(4)( 5)(6)(7): [x ]I. Angina with acute coronary syndrome (Also use Myocardial Infarction or Angina guideline) [ ]II. Hemodynamic instability [ ]III. Respiratory distress [ ]IV. Chest pain indicative of serious diagnosis other than coronary artery disease (e.g., aorticdissection) Extended stay beyond goal length of stay may be needed for(3)(4)(10)(45)(48) [ ]a) Unstable angina [ ]b) Continued suspicion of acute coronary syndrome with inability to complete needed cardiac evaluation (eg, patient clinically unable to undergo stress testing) [ ]c) Myocardial infarction [ ]d) Specific condition diagnosed after evaluation (eg, pulmonary embolism, aortic dissection)(49)(50)(51) The original [employer] content created by [employer] has been revised. The portions of the content which have been revised are identified through the use of italic text, and [facility] has neither reviewed nor approved the modified material. All other unmodified content is copyright [employer]. Please see references footnoted in the original [employer] edition 2014 MARLYN AKERS MD Dec 12, 2016 12:24
[2016-12-12] MEDS ORDERED: LOVENOX SQ ONE (12:31)
[2016-12-12] MEDS ORDERED: NITRO-BID TD ONE (12:31)
[2016-12-12] MEDS ORDERED: ZOVIRAX ONE (12:31)
--- NOTE | 2016-12-12 13:28 | PCM.EKG ---
[facility] Test Date: 2016-12-12 Test Time: 10:35:32 Pat Name: ANTELMO KATZ Department: Room: 311 A Gender: F Reading Intervention Teacher: RT : 1955 Requested By: ANNI TAY Order Number: [id number] Reading MD: Ovi Acevedo Measurements Intervals [place] Rate: 79 P: 45 IN: 136 QRS: -19 QRSD: 88 T: 27 QT: 404 QTc: 463 Interpretive Statements Normal sinus rhythm Normal ECG No previous ECG available for comparison Electronically Signed On 12-13-2016 7:24:30 CDT by Ovi Acevedo Please click the below link to view image of tracing.
[2016-12-12] MEDS ORDERED: BUSPAR PO PRN (13:30)
--- NOTE | 2016-12-12 13:33 | PCM.HP ---
History of Present Illness Reason for Visit: chest pain for 3 days History of Present Illness 61 yo lady with extensive CAD, multiple PCIs, most recent was 10/2015. with HTN and lipidemia, exsmoker. presented to ED with three days of progressive angina, with SOB and feeling ill. initial work up showed normal Blaire and no ST elevation on ECG. admitted to manage UA with established CAD, finding of Shingls noted in ED, pt started on Acyclovir Past Medical History Cardiac: CAD, HTN, Hyperlipidemia Pulmonary: Asthma, Bronchitis, COPD Renal/: Chronic Renal Insuff Past Surgical History: Other (recent READING TUTOR Sx) Past Social History Smoke: Quit Alcohol: rare Lives: with Family Travel Hx EBOLA RISK:Travel to/contact w: No Is pt experiencing any Ebola s: No Review of Systems Constitutional: Weakness Eyes: No: Pain, Vision change, Conjunctivae inflammation, Eyelid inflammation, Other, Redness ENT: No: Ear pain, Ear discharge, Nose pain, Nose discharge, Nose congestion, Mouth pain, Mouth swelling, Throat pain, Throat swelling, Other Cardiovascular: Chest Pain Gastrointestinal: Nausea Genitourinary: No Dysuria, No Frequency, No Incontinence, No Hematuria, No Retention, No Other Musculoskeletal: No: other, neck pain, shoulder pain, arm pain, back pain, hand pain, leg pain, foot pain Skin: Rash, Lesions, Bruising Allergies: Coded Allergies: aspirin (Verified Allergy, Severe, Anaphylaxis Shock, 09/10/16) morphine (Verified Allergy, Severe, THROAT WILL CLOSE,STOP BREATHING, ) Scheduled Clopidogrel Bisulfate (Plavix), 1 TAB PO DAILY, (Reported) Famotidine (Pepcid), 1 TAB PO BIDAC, (Reported) Levothyroxine Sodium (Synthroid), 1 TAB PO DAILY, (Reported) Lisinopril (Lisinopril), 1 TAB PO DAILY, (Reported) Metoprolol Succinate (Toprol Xl), 1 TAB PO DAILY, (Reported) Metronidazole (Flagyl), 500 MG PO BID Sertraline Hcl (Zoloft), 1 TAB PO DAILY, (Reported) Simvastatin (Zocor), 1 TAB PO DAILY Trazodone Hcl (Trazodone Hcl), 1 TAB PO HS, (Reported) Scheduled PRN Buspirone Hcl (Buspirone Hcl), 1 TAB PO BID PRN for ANXIETY, (Reported) Oxycodone Hcl/Acetaminophen (Percocet 7.5-325 Mg Tablet), 1 TAB PO QID PRN for PAIN, (Reported) VTE VTE Risk Total Score: 3 VTE Risk Score VTE Risk: Score 0-1 = Low Risk (Aggressive mobilization; early ambulation; no VTE prophylaxis required) Score 2: Moderate Risk (Intermittent/Pneumatic Compression Device OR Lovenox/Heparin/Coumadin) Score 3-4: High Risk (Intermittent/Pneumatic Compression Device AND Lovenox/Heparin/Coumadin) Score > or =5: Highest Risk (Intermittent/Pneumatic Compression Device AND Lovenox/Heparin/Coumadin) Antico:Hep/LMWH/Coum/Xarelto: Yes VTE VTE Present on Admission: No Currently receiving anticoagul: Yes VTE Risk Total Score: 3 Exam Vital Signs Vital Signs Date Time Temp Pulse Resp B/P (MAP) Pulse Ox O2 Delivery O2 Flow Rate FiO2 12/12/16 10:27 97.8 74 18 176/107 (130) 98 General Appearance: Alert, Oriented X3, Cooperative, mild distress HEENT: Atraumatic Respiratory: Clear to auscultation Cardiovascular: Regular rate Abdominal: Normal bowel sounds Skin: Lesions (shingles) Assessment/Plan Assessment/Plan Assessment/Plan -UA, with progressive angina -established CAD -prior PCIs -HTN -Lipidemia -H. Zoster Shingles -h/o tobacco use plan: ACS, follow Blaire, Acyclovir PO. likely to need LHC and PCI Problems: Patient History: Cerebrovascular disorder 32 MOTHER Chronic obstructive pulmonary disease 32 MOTHER FH: coronary artery disease 32 MOTHER G8 BROTHER FH: heart attack 32 MOTHER Hypertension 32 MOTHER G8 BROTHER No known health problems 33 FATHER, , Age:58 G8 BROTHER G8 BROTHER G8 BROTHER G8 BROTHER G8 SISTER G8 SISTER 19 CHILD 19 CHILD 19 CHILD No Family History of: Alzheimer's disease Asthma Congestive heart failure Diabetes insipidus Diabetes mellitus Parkinson's disease ANNI TAY MD Dec 12, 2016 13:33
[2016-12-12 13:43] VITALS: BP 131/64
--- NOTE | 2016-12-12 15:23 | PCM.EKG ---
[facility] Test Date: 2016-12-12 Test Time: 15:23:09 Pat Name: ANTELMO KATZ Department: Room: 311 Gender: F Fabrication Lead: RT : 1955 Requested By: MARLYN AKERS Order Number: [id number] Reading MD: Marium Turner Measurements Intervals [place] Rate: 73 P: 48 CA: 136 QRS: -23 QRSD: 80 T: 24 QT: 398 QTc: 438 Interpretive Statements Normal sinus rhythm Normal ECG No previous ECG available for comparison Electronically Signed On 12-14-2016 15:34:16 CDT by Marium Turner Please click the below link to view image of tracing.
[2016-12-12 19:13] VITALS: BP 132/90
[2016-12-12] MEDS: PEPCID PO SCH (19:20)
[2016-12-12] MEDS: OXY-IR PO PRN (19:31)
[2016-12-12] MEDS: LOVENOX SQ SCH (22:47)
[2016-12-12] MEDS: ZOCOR PO SCH (22:48)
[2016-12-12] MEDS: FLAGYL PO SCH (22:48)
[2016-12-12] MEDS: DESYREL PO SCH (22:49)
[2016-12-13 00:03] VITALS: BP 146/84
[2016-12-13 02:44] LABS: BASOPHIL % 0.4 % (0.0-0.2); EOSINOPHIL # 0.1 10^3/uL (0.0-0.2); EOSINOPHIL % 1.4 % (0.0-5.0); HEMOGLOBIN 14.2 g/dL (12.0-15.0); LYMPHOCYTES # 2.7 10^3/uL (1.0-4.8); MEAN CELL HGB 31.3 pg (26-34); MEAN CELL HGB CONCENTRATION 34.1 g/dL (33-37); MEAN CORP VOLUME 91.6 fL (78-100); MONOCYTES # 0.5 10^3/uL (0.3-0.8); MONOCYTES % 6.4 % (5.0-12.0); NEUTROPHIL # 4.1 10^3/uL (1.8-7.7); NEUTROPHILS % 55.8 % (41.0-85.0); PLATELET COUNT 241 10^3/uL (150-400); RED CELL DISTRIBUTION WIDTH 12.5 % (11.5-14.5); WHITE BLOOD CELL 7.4 10^3/uL (4.5-11.0)
[2016-12-13] MEDS: TYLENOL PO PRN ×2 (03:57→10:51)
[2016-12-13 04:38] VITALS: BP 156/86
[2016-12-13 06:13] LABS: CALCIUM 9.1 mg/dL (8.4-10.5); CARBON DIOXIDE 24.9 mmol/L (20.0-32); CHOLESTEROL 224 mg/dL (120-240); GLUCOSE 110 mg/dL (70-110); HDL CHOLESTEROL 45 mg/dL (32-96)
[2016-12-13] MEDS: SYNTHROID PO SCH (07:35)
[2016-12-13] MEDS: PEPCID PO SCH ×2 (07:35→16:30)
--- NOTE | 2016-12-13 09:40 | PRM.PN ---
Subjective Subjective Date: Dec 13, 2016 Time: 09:31 Subjective This is a 61-year-old female with extensive CAD and multiple PCIs, most recently about a year ago. She also has hypertension with hyperlipidemia. She is an ex-smoker. She presented to the ED with three days of progressive anginal, shortness of breath and feeling ill. Initial cardiac enzymes and EKG were negative for acute changes. She was admitted for unstable angina with established coronary artery disease. Of note, she has shingles and will begin oral medication. She also has a history of asthma/bronchitis/COPD, chronic renal insufficiency. Patient History: Asthma 19 CHILD 19 CHILD Cerebrovascular disorder 32 MOTHER Chronic obstructive pulmonary disease 32 MOTHER FH: coronary artery disease 32 MOTHER G8 BROTHER FH: heart attack 32 MOTHER Hypertension 32 MOTHER G8 BROTHER No known health problems 33 FATHER, , Age:58 G8 BROTHER G8 BROTHER G8 BROTHER G8 BROTHER G8 SISTER G8 SISTER 19 CHILD No Family History of: Alzheimer's disease Congestive heart failure Diabetes insipidus Diabetes mellitus Parkinson's disease VTE VTE Risk Total Score: 2 VTE Risk Score VTE Risk: Score 0-1 = Low Risk (Aggressive mobilization; early ambulation; no VTE prophylaxis required) Score 2: Moderate Risk (Intermittent/Pneumatic Compression Device OR Lovenox/Heparin/Coumadin) Score 3-4: High Risk (Intermittent/Pneumatic Compression Device AND Lovenox/Heparin/Coumadin) Score > or =5: Highest Risk (Intermittent/Pneumatic Compression Device AND Lovenox/Heparin/Coumadin) Antico:Hep/LMWH/Coum/Xarelto: Yes Review of Systems Constitutional: Weakness Eyes: No: Pain, Vision change, Conjunctivae inflammation, Eyelid inflammation, Other, Redness ENT: No: Ear pain, Ear discharge, Nose pain, Nose discharge, Nose congestion, Mouth pain, Mouth swelling, Throat pain, Throat swelling, Other Cardiovascular: Chest Pain Gastrointestinal: Nausea Genitourinary: No Dysuria, No Frequency, No Incontinence, No Hematuria, No Retention, No Other Musculoskeletal: No: other, neck pain, shoulder pain, arm pain, back pain, hand pain, leg pain, foot pain Skin: Rash, Lesions, Bruising Allergies: Coded Allergies: aspirin (Verified Allergy, Severe, Anaphylaxis Shock, 09/10/16) morphine (Verified Allergy, Severe, THROAT WILL CLOSE,STOP BREATHING, ) Scheduled Clopidogrel Bisulfate (Plavix), 1 TAB PO DAILY, (Reported) Famotidine (Pepcid), 1 TAB PO BIDAC, (Reported) Levothyroxine Sodium (Synthroid), 1 TAB PO DAILY, (Reported) Lisinopril (Lisinopril), 1 TAB PO DAILY, (Reported) Metoprolol Succinate (Toprol Xl), 1 TAB PO DAILY, (Reported) Sertraline Hcl (Zoloft), 1 TAB PO DAILY, (Reported) Simvastatin (Zocor), 1 TAB PO DAILY Trazodone Hcl (Trazodone Hcl), 1 TAB PO HS, (Reported) Scheduled PRN Buspirone Hcl (Buspirone Hcl), 1 TAB PO BID PRN for ANXIETY, (Reported) Oxycodone Hcl/Acetaminophen (Percocet 7.5-325 Mg Tablet), 1 TAB PO QID PRN for PAIN, (Reported) Discontinued Medications Metronidazole (Flagyl), 500 MG PO BID Discontinued Reason: No Longer Taking Objective Vitals and I/O Vital Sign - Last 24 Hours 12/12/16 12/12/16 12/12/16 12/12/16 10:20 10:27 10:27 13:43 Temp 97.8 97.8 96.2 Pulse 70 74 66 Resp 18 18 16 B/P (MAP) 176/107 (130) 131/64 (86) Pulse Ox 98 98 94 O2 Delivery Room Air 12/12/16 12/12/16 12/13/16 12/13/16 14:18 19:13 00:03 01:53 Temp 96.9 96.4 Pulse 75 60 Resp 18 18 B/P (MAP) 132/90 (104) 146/84 (104) Pulse Ox 94 96 O2 Delivery Room Air Room Air Room Air Room Air 12/13/16 04:38 Temp 96.7 Pulse 55 Resp 18 B/P (MAP) 156/86 (109) Pulse Ox 97 O2 Delivery Room Air General: Alert, Oriented X3, Cooperative, No acute distress Lungs: Clear to auscultation Heart: Regular rate Extremities: No cyanosis Skin: Other (Shingles, left) Neuro: Normal speech, Normal tone Psych/Mental Status: Mental status NL, Mood NL Medication Reconciliation Scheduled Clopidogrel Bisulfate (Plavix), 1 TAB PO DAILY, (Reported) Famotidine (Pepcid), 1 TAB PO BIDAC, (Reported) Levothyroxine Sodium (Synthroid), 1 TAB PO DAILY, (Reported) Lisinopril (Lisinopril), 1 TAB PO DAILY, (Reported) Metoprolol Succinate (Toprol Xl), 1 TAB PO DAILY, (Reported) Sertraline Hcl (Zoloft), 1 TAB PO DAILY, (Reported) Simvastatin (Zocor), 1 TAB PO DAILY Trazodone Hcl (Trazodone Hcl), 1 TAB PO HS, (Reported) Scheduled PRN Buspirone Hcl (Buspirone Hcl), 1 TAB PO BID PRN for ANXIETY, (Reported) Oxycodone Hcl/Acetaminophen (Percocet 7.5-325 Mg Tablet), 1 TAB PO QID PRN for PAIN, (Reported) Discontinued Medications Metronidazole (Flagyl), 500 MG PO BID Discontinued Reason: No Longer Taking Assessment/Plan Assessment/Plan Problems: (1) Herpes zoster Status: Acute SEVERITY: MODERATE PERSISTENT ICD Code: B02.9 - Zoster without complications SNOMED: 4355330 (2) Unstable angina Status: Acute ICD Code: I20.0 - Unstable angina SNOMED: 4221359 Patient History: Asthma 19 CHILD 19 CHILD Cerebrovascular disorder 32 MOTHER Chronic obstructive pulmonary disease 32 MOTHER FH: coronary artery disease 32 MOTHER G8 BROTHER FH: heart attack 32 MOTHER Hypertension 32 MOTHER G8 BROTHER No known health problems 33 FATHER, , Age:58 G8 BROTHER G8 BROTHER G8 BROTHER G8 BROTHER G8 SISTER G8 SISTER 19 CHILD No Family History of: Alzheimer's disease Congestive heart failure Diabetes insipidus Diabetes mellitus Parkinson's disease Plan Patient is to remain hospitalized and to have cardiac catheterization tomorrow. Chest pain to be managed with nitroglycerin if needed. NPO at [facility]. Problem Qualifiers (1) Herpes zoster: Herpes zoster complications: without complications Qualified Codes: B02.9 - Zoster without complications CRUZITO GONZALEZ MOTOR INSPECTION MECHANIC Dec 13, 2016 09:40
[2016-12-13] MEDS: OXY-IR PO PRN ×2 (10:51→18:38)
[2016-12-13 11:35] VITALS: BP 155/85
[2016-12-13] MEDS: LOVENOX SQ SCH ×2 (11:37→21:13)
[2016-12-13] MEDS: TOPROL XL PO SCH (11:38)
[2016-12-13] MEDS: FLAGYL PO SCH ×2 (11:38→21:13)
[2016-12-13] MEDS: PLAVIX PO SCH (11:38)
[2016-12-13] MEDS: ZOLOFT PO SCH (11:38)
[2016-12-13] MEDS: ZESTRIL PO SCH (11:39)
[2016-12-13 16:01] VITALS: BP 124/73
[2016-12-13 19:00] VITALS: BP 150/89
[2016-12-13] MEDS: ZOCOR PO SCH (21:13)
[2016-12-13] MEDS: DESYREL PO SCH (21:13)
[2016-12-14 00:15] VITALS: BP 135/77
[2016-12-14 04:32] VITALS: BP 129/80
[2016-12-14 05:34] LABS: BASOPHIL % 0.3 % (0.0-0.2); EOSINOPHIL # 0.2 10^3/uL (0.0-0.2); EOSINOPHIL % 2.7 % (0.0-5.0); HEMOGLOBIN 13.8 g/dL (12.0-15.0); LYMPHOCYTES # 2.6 10^3/uL (1.0-4.8); LYMPHOCYTES % 37.1 % (24.0-44.0); MEAN CELL HGB 30.5 pg (26-34); MEAN CELL HGB CONCENTRATION 32.9 g/dL (33-37); MEAN CORP VOLUME 92.9 fL (78-100); MONOCYTES # 0.5 10^3/uL (0.3-0.8); MONOCYTES % 7.7 % (5.0-12.0); NEUTROPHIL # 3.6 10^3/uL (1.8-7.7); NEUTROPHILS % 51.9 % (41.0-85.0); RED CELL DISTRIBUTION WIDTH 12.5 % (11.5-14.5)
[2016-12-14] MEDS: SYNTHROID PO SCH (05:41)
[2016-12-14 05:44] LABS: CALCIUM 9.3 mg/dL (8.4-10.5)
[2016-12-14] MEDS ORDERED: VERSED ONE ×2 (06:34→14:38)
[2016-12-14] MEDS ORDERED: NS 1000ML 1,000 ML ONE (06:34)
[2016-12-14] MEDS ORDERED: SUBLIMAZE ONE (06:34)
[2016-12-14] MEDS ORDERED: HEPARIN ONE (06:34)
[2016-12-14] MEDS ORDERED: CALAN ONE (06:34)
[2016-12-14] MEDS ORDERED: XYLOCAINE ONE (06:35)
[2016-12-14] MEDS ORDERED: NITROGLYCERIN 25MG/D5W 250ML 250 ML IV ONE (06:35)
[2016-12-14] MEDS: PEPCID PO SCH ×2 (07:30→17:01)
--- NOTE | 2016-12-14 08:10 | PCM.EKG ---
[facility] Test Date: 2016-12-14 Test Time: 06:40:49 Pat Name: ANTELMO KATZ Department: Room: 311 A Gender: F Fire Prevention Inspector: KRIS : 1955 Requested By: CRUZITO GONZALEZ Order Number: [id number] Reading MD: Marium Turner Measurements Intervals [place] Rate: 58 P: 69 ID: 150 QRS: -10 QRSD: 76 T: 19 QT: 426 QTc: 418 Interpretive Statements Sinus bradycardia Otherwise normal ECG Compared to ECG 12/12/2016 10:35:32 Sinus rhythm no longer present Electronically Signed On 12-20-2016 8:52:12 CDT by Marium Turner Please click the below link to view image of tracing.
--- NOTE | 2016-12-14 08:30 | PRM.PN ---
Subjective Subjective Date: Dec 14, 2016 Time: 08:23 Subjective This is a 61-year-old female with extensive CAD and multiple PCIs, most recently about a year ago. She also has hypertension with hyperlipidemia. She is an ex-smoker. She presented to the ED with three days of progressive anginal, shortness of breath and feeling ill. Initial cardiac enzymes and EKG were negative for acute changes. She was admitted for unstable angina with established coronary artery disease. Of note, she has shingles and will continued oral medication. She also has a history of asthma/bronchitis/COPD, chronic renal insufficiency. Patient is alert and ready to "get this over with." Denies pain. Patient History: Asthma 19 CHILD 19 CHILD Cerebrovascular disorder 32 MOTHER Chronic obstructive pulmonary disease 32 MOTHER FH: coronary artery disease 32 MOTHER G8 BROTHER FH: heart attack 32 MOTHER Hypertension 32 MOTHER G8 BROTHER No known health problems 33 FATHER, , Age:58 G8 BROTHER G8 BROTHER G8 BROTHER G8 BROTHER G8 SISTER G8 SISTER 19 CHILD No Family History of: Alzheimer's disease Congestive heart failure Diabetes insipidus Diabetes mellitus Parkinson's disease VTE VTE Risk Total Score: 2 VTE Risk Score VTE Risk: Score 0-1 = Low Risk (Aggressive mobilization; early ambulation; no VTE prophylaxis required) Score 2: Moderate Risk (Intermittent/Pneumatic Compression Device OR Lovenox/Heparin/Coumadin) Score 3-4: High Risk (Intermittent/Pneumatic Compression Device AND Lovenox/Heparin/Coumadin) Score > or =5: Highest Risk (Intermittent/Pneumatic Compression Device AND Lovenox/Heparin/Coumadin) Antico:Hep/LMWH/Coum/Xarelto: Yes Review of Systems Constitutional: Weakness Eyes: No: Pain, Vision change, Conjunctivae inflammation, Eyelid inflammation, Other, Redness ENT: No: Ear pain, Ear discharge, Nose pain, Nose discharge, Nose congestion, Mouth pain, Mouth swelling, Throat pain, Throat swelling, Other Cardiovascular: Chest Pain Gastrointestinal: Nausea Genitourinary: No Dysuria, No Frequency, No Incontinence, No Hematuria, No Retention, No Other Musculoskeletal: No: other, neck pain, shoulder pain, arm pain, back pain, hand pain, leg pain, foot pain Skin: Rash, Lesions, Bruising Allergies: Coded Allergies: aspirin (Verified Allergy, Severe, Anaphylaxis Shock, 09/10/16) morphine (Verified Allergy, Severe, THROAT WILL CLOSE,STOP BREATHING, ) Scheduled Clopidogrel Bisulfate (Plavix), 1 TAB PO DAILY, (Reported) Famotidine (Pepcid), 1 TAB PO BIDAC, (Reported) Levothyroxine Sodium (Synthroid), 1 TAB PO DAILY, (Reported) Lisinopril (Lisinopril), 1 TAB PO DAILY, (Reported) Metoprolol Succinate (Toprol Xl), 1 TAB PO DAILY, (Reported) Sertraline Hcl (Zoloft), 1 TAB PO DAILY, (Reported) Simvastatin (Zocor), 1 TAB PO DAILY Trazodone Hcl (Trazodone Hcl), 1 TAB PO HS, (Reported) Scheduled PRN Buspirone Hcl (Buspirone Hcl), 1 TAB PO BID PRN for ANXIETY, (Reported) Oxycodone Hcl/Acetaminophen (Percocet 7.5-325 Mg Tablet), 1 TAB PO QID PRN for PAIN, (Reported) Discontinued Medications Metronidazole (Flagyl), 500 MG PO BID Discontinued Reason: No Longer Taking Objective Vitals and I/O Vital Sign - Last 24 Hours 12/13/16 12/13/16 12/13/16 12/13/16 10:00 11:35 11:38 11:39 Temp 97.2 Pulse 66 66 Resp 16 B/P (MAP) 155/85 (108) 155/85 155/85 Pulse Ox 96 O2 Delivery Room Air Room Air 12/13/16 12/13/16 12/13/16 12/14/16 16:01 19:00 19:40 00:15 Temp 96.7 97.4 96.1 Pulse 51 61 55 Resp 16 18 17 B/P (MAP) 124/73 (90) 150/89 (109) 135/77 (96) Pulse Ox 95 93 93 O2 Delivery Room Air Room Air Room Air Room Air 12/14/16 04:32 Temp 96.3 Pulse 55 Resp 18 B/P (MAP) 129/80 (96) Pulse Ox 96 O2 Delivery Room Air General: Alert, Oriented X3, Cooperative, No acute distress HEENT: Atraumatic Neck: Supple Lungs: Clear to auscultation Heart: Regular rate Extremities: No cyanosis Neuro: Normal speech, Normal tone Psych/Mental Status: Mental status NL, Mood NL Medication Reconciliation Scheduled Clopidogrel Bisulfate (Plavix), 1 TAB PO DAILY, (Reported) Famotidine (Pepcid), 1 TAB PO BIDAC, (Reported) Levothyroxine Sodium (Synthroid), 1 TAB PO DAILY, (Reported) Lisinopril (Lisinopril), 1 TAB PO DAILY, (Reported) Metoprolol Succinate (Toprol Xl), 1 TAB PO DAILY, (Reported) Sertraline Hcl (Zoloft), 1 TAB PO DAILY, (Reported) Simvastatin (Zocor), 1 TAB PO DAILY Trazodone Hcl (Trazodone Hcl), 1 TAB PO HS, (Reported) Scheduled PRN Buspirone Hcl (Buspirone Hcl), 1 TAB PO BID PRN for ANXIETY, (Reported) Oxycodone Hcl/Acetaminophen (Percocet 7.5-325 Mg Tablet), 1 TAB PO QID PRN for PAIN, (Reported) Discontinued Medications Metronidazole (Flagyl), 500 MG PO BID Discontinued Reason: No Longer Taking Assessment/Plan Assessment/Plan Problems: (1) Chest pain Status: Acute SEVERITY: MILD PERSISTENT ICD Code: R07.9 - Chest pain, unspecified SNOMED: 63481967 (2) Herpes zoster Status: Acute SEVERITY: MODERATE PERSISTENT ICD Code: B02.9 - Zoster without complications SNOMED: 6814744 Patient History: Asthma 19 CHILD 19 CHILD Cerebrovascular disorder 32 MOTHER Chronic obstructive pulmonary disease 32 MOTHER FH: coronary artery disease 32 MOTHER G8 BROTHER FH: heart attack 32 MOTHER Hypertension 32 MOTHER G8 BROTHER No known health problems 33 FATHER, , Age:58 G8 BROTHER G8 BROTHER G8 BROTHER G8 BROTHER G8 SISTER G8 SISTER 19 CHILD No Family History of: Alzheimer's disease Congestive heart failure Diabetes insipidus Diabetes mellitus Parkinson's disease Plan Coronary artery disease PLAN: 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 Continued acyclovir today BID. Continue medications as prescribed Problem Qualifiers (1) Chest pain: Ischemic chest pain type: unstable angina pectoris (2) Herpes zoster: Herpes zoster complications: without complications Qualified Codes: B02.9 - Zoster without complications CRUZITO GONZALEZ HARD TILE SETTER Dec 14, 2016 08:30
[2016-12-14 08:32] VITALS: BP 150/70
[2016-12-14] MEDS: ZOLOFT PO SCH (09:00)
[2016-12-14] MEDS: FLAGYL PO SCH ×2 (09:00→20:53)
[2016-12-14] MEDS: ZOVIRAX PO SCH ×2 (09:00→20:53)
[2016-12-14] MEDS: PLAVIX PO SCH (09:01)
[2016-12-14] MEDS: TOPROL XL PO SCH (09:01)
[2016-12-14] MEDS: ZESTRIL PO SCH (09:01)
[2016-12-14] MEDS: LOVENOX SQ SCH ×2 (09:02→20:52)
[2016-12-14 11:47] VITALS: BP 150/90
[2016-12-14] MEDS ORDERED: NS FLUSH ONE (14:28)
[2016-12-14] MEDS ORDERED: BRILINTA ONE (14:50)
[2016-12-14] MEDS ORDERED: TUMS ONE (14:50)
[2016-12-14] MEDS ORDERED: PREDNISONE PO STA (15:10)
[2016-12-14] MEDS ORDERED: NORCO 5MG PO PRN (15:30)
--- NOTE | 2016-12-14 15:50 | [facility] ---
DATE OF SERVICE: 12/14/2016 PROCEDURES PERFORMED: 1. Left heart catheterization via right radial artery access. 2. Selective coronary angiography, left and right. 3. Left ventricular end-diastolic pressure measurement. 4. Left ventriculography. 5. Angioplasty of mid LAD with drug-eluting stent using primary stenting. 6. Heparin infusion with ACT monitoring. COMPLICATIONS: None BLOOD LOSS: Minimal, less than 20 mL INDICATIONS: 1. Unstable angina. 2. Established history of coronary artery disease and multiple PCIs, most recent was in October 2015. 3. Continuous chest pain after hospitalization requiring aggressive treatment with opiate therapy and nitroglycerin. 4. Abnormal EKG. DESCRIPTION OF PROCEDURE: The patient was brought into the [facility] as an inpatient in a fasting condition and has been on ACS protocol from admission, and continues to have recurrent angina symptoms requiring progressive therapy with nitroglycerin. She signed the appropriate consent, the risks and benefits were explained, all questions answered, lab results were reviewed, and allergies verified. The right wrist area was prepped and draped and sterilized with 1% lidocaine for local analgesia. A 6-Greek sheath was inserted into the right radial artery without difficulty followed by advancing a 6-Greek JR4 for selective angiography and a 6-Greek [place] catheter for selective engagement of the left main. A pigtail catheter was then exchanged over the guidewire and into the LV cavity for LVEDP measurement and power injection LV gram in the [place] projection. A 60% to 75% lesion in the mid LAD was noted, irregular hazy looking lesion consistent with findings of unstable angina. The decision was made to proceed with angioplasty, especially with the patient's recurrent angina symptoms. This was the only identifiable obstructive coronary artery disease. An JL4 was the guide of choice to engage the left. A BMW was advanced into the LAD followed by advancing a GuideLiner extension catheter. A 3.0 x 15 Resolute type drug-eluting stent was deployed at 12 and postdilated to 16 atmospheric pressures achieving 0% residual stenosis and TIMI3 flow without complications. The patient reported chest pain upon stent balloon inflation. Heparin was given as anticoagulation of choice with the ACT monitored for therapeutic levels. The patient was educated on the results of the coronary angiography and left the Data Management Manager in a stable condition. A TR band was applied at the right radial artery access site for hemostasis. HEMODYNAMICS: 1. Opening pressure: 180/77 mmHg. Mean: 124 mmHg. 2. LVEDP around 10 to 12 mmHg. 3. LV gram showed EF of 60% with no significant wall motion abnormality. 4. No gradient across the aortic valve on pullback of the pigtail catheter. ANGIOGRAPHIC FINDINGS: 1. Right coronary artery showed patent stent, mild in-stent restenosis in the mid segment, the vessel was dominant. This study showed mild disease. No obstructive lesion in the RCA territory. The in-stent restenosis in the mid RCA was around 30%. 2. The left main is short. The superior takeoff is free of disease. 3. Circumflex artery is a medium size vessel with no significant obstruction. It gives rise to a medium sized, tortuous obtuse marginal branch without significant disease. 4. LAD showed mild proximal lesion. The mid segment showed 60% to 75% disease. The distal LAD showed mild disease, tortuous vessel. The diagonal branches showed mild nonobstructive disease. There was a mid LAD stent patent. INTERVENTION: The LAD was engaged using a JL4 guiding catheter and an extension GuideLiner wire. A BMW wire was advanced across the LAD in the [place] projection followed by primary stenting using a 3.0 x 15 drug-eluting stent. IMPRESSION: 1. Successful angioplasty of [id number] mid LAD lesion using primary stenting with drug-eluting stent in the setting of unstable angina and established coronary artery disease. 2. Patent LAD stent. 3. Nonsignificant circumflex artery disease. 4. Patent RCA stent with mild in-stent restenosis. 5. Preserved EF of 55% to 60%. 6. Normal left ventricular end-diastolic pressure. RECOMMENDATIONS: 1. TR band protocol. 2. Optimize medical management for a secondary prevention of coronary artery disease. 3. Dual antiplatelet therapy for another 12 months starting from this intervention. 4. Observation for any postprocedural complication. Marium Turner MD DR: LAVONNE/ellie JOB# [id number]
[2016-12-14 16:32] VITALS: BP 149/70
[2016-12-14] MEDS ORDERED: PREDNISONE ONE (16:33)
[2016-12-14] MEDS: NS 1000ML 1,000 ML IV SCH (17:03)
[2016-12-14] MEDS: DESYREL PO SCH (20:53)
[2016-12-14] MEDS: ZOCOR PO SCH (20:53)
[2016-12-14] MEDS: OXY-IR PO PRN (21:06)
[2016-12-14] MEDS: TYLENOL PO PRN (21:06)
[2016-12-15 00:32] VITALS: BP 111/63
[2016-12-15] MEDS: NS 1000ML 1,000 ML IV SCH (01:00)
[2016-12-15 04:30] VITALS: BP 102/65
[2016-12-15 05:57] LABS: BASOPHIL % 0.1 % (0.0-0.2); EOSINOPHIL % 0.5 % (0.0-5.0); LYMPHOCYTES # 2.5 10^3/uL (1.0-4.8); LYMPHOCYTES % 32.8 % (24.0-44.0); MEAN CELL HGB 30.5 pg (26-34); MEAN CELL HGB CONCENTRATION 32.8 g/dL (33-37); MONOCYTES # 0.5 10^3/uL (0.3-0.8); MONOCYTES % 6.4 % (5.0-12.0); NEUTROPHIL # 4.6 10^3/uL (1.8-7.7); NEUTROPHILS % 60.1 % (41.0-85.0); RED CELL DISTRIBUTION WIDTH 12.3 % (11.5-14.5); WHITE BLOOD CELL 7.7 10^3/uL (4.5-11.0)
[2016-12-15 06:12] LABS: CARBON DIOXIDE 24.7 mmol/L (20.0-32)
[2016-12-15 06:13] LABS: CALCIUM 9.1 mg/dL (8.4-10.5)
[2016-12-15] MEDS: SYNTHROID PO SCH (06:26)
[2016-12-15 07:03] VITALS: BP 134/57
[2016-12-15] MEDS: PEPCID PO SCH (07:30)
[2016-12-15] MEDS: TOPROL XL PO SCH (09:00)
[2016-12-15] MEDS ORDERED: PREDNISONE PO SCH (09:00)
[2016-12-15] MEDS: LOVENOX SQ SCH (09:00)
[2016-12-15] MEDS: ZOVIRAX PO SCH (09:27)
[2016-12-15] MEDS: ZESTRIL PO SCH (09:27)
[2016-12-15] MEDS: FLAGYL PO SCH (09:28)
[2016-12-15] MEDS: ZOLOFT PO SCH (09:28)
[2016-12-15] MEDS: PLAVIX PO SCH (09:28)
[2016-12-15] MEDS: ZOCOR PO SCH (09:44)
[2016-12-15] MEDS ORDERED: [UNRECOGNIZED DRUG - CODE] PO (10:38)
--- NOTE | 2016-12-15 10:46 | PRM.DC ---
Discharge Summary Date of Discharge: Dec 15, 2016 Time of Request to Discharge: 10:40 Reason for Visit: chest pain for 3 days Patient History: Asthma 19 CHILD 19 CHILD Cerebrovascular disorder 32 MOTHER Chronic obstructive pulmonary disease 32 MOTHER FH: coronary artery disease 32 MOTHER G8 BROTHER FH: heart attack 32 MOTHER Hypertension 32 MOTHER G8 BROTHER No known health problems 33 FATHER, , Age:58 G8 BROTHER G8 BROTHER G8 BROTHER G8 BROTHER G8 SISTER G8 SISTER 19 CHILD No Family History of: Alzheimer's disease Congestive heart failure Diabetes insipidus Diabetes mellitus Parkinson's disease History Present Illness: General: Alert, Oriented X3, Cooperative, No acute distress HEENT: Atraumatic Neck: Supple Lungs: Clear to auscultation Heart: Regular rate Extremities: No cyanosis Neuro: Normal gait, Normal speech Psych/Mental Status: Mental status NL, Mood NL Scheduled Clopidogrel Bisulfate (Plavix), 1 TAB PO DAILY, (Reported) Famotidine (Pepcid), 1 TAB PO BIDAC, (Reported) Levothyroxine Sodium (Synthroid), 1 TAB PO DAILY, (Reported) Lisinopril (Lisinopril), 1 TAB PO DAILY, (Reported) Metoprolol Succinate (Toprol Xl), 1 TAB PO DAILY, (Reported) Paroxetine Hcl (Paxil), 30 MG PO DAILY Sertraline Hcl (Zoloft), 1 TAB PO DAILY, (Reported) Simvastatin (Zocor), 1 TAB PO DAILY Trazodone Hcl (Trazodone Hcl), 1 TAB PO HS, (Reported) Scheduled PRN Oxycodone Hcl/Acetaminophen (Percocet 7.5-325 Mg Tablet), 1 TAB PO QID PRN for PAIN, (Reported) Discontinued Medications Buspirone Hcl (Buspirone Hcl), 1 TAB PO BID PRN for ANXIETY, (Reported) Discontinued Reason: Discontinue Metronidazole (Flagyl), 500 MG PO BID Discontinued Reason: No Longer Taking Sepsis Evaluation @ Discharge Course Blood Pressure Systolic: 134 Blood Pressure Diastolic: 57 Blood Pressure Mean: 82 Plan Problems: (1) Herpes zoster Status: Acute ICD Code: B02.9 - Zoster without complications SNOMED: 7583435 (2) Unstable angina Status: Acute ICD Code: I20.0 - Unstable angina SNOMED: 9379791 Discharge Date: Dec 15, 2016 Discharge Disposition: Stable Plan Patient underwent cardiac cath with successful angioplasty of moderate-to- severe mid LAD lesion using primary stenting with drug-eluting stent in the setting of unstable angina and established coronary artery disease. She is to be discharged on prior home medications except Buspar - changed to Paxil per request. Add acyclovir for shingles for three months. Add Prednisone for five days. Follow up as scheduled. Problem Qualifiers (1) Herpes zoster: Herpes zoster complications: without complications Qualified Codes: B02.9 - Zoster without complications CRUZITO GONZALEZ [employer]ACHINE CATCHER Dec 15, 2016 10:46
[2016-12-15 11:12] VITALS: BP 134/57
--- NOTE | 2016-12-17 15:32 | ECHO ---
DATE OF SERVICE: 12/12/2016 INDICATIONS: A 61-year-old lady with unstable angina and established CAD admitted with chest pain, elected for an echocardiographic study. FINDINGS: 1. Study quality suboptimal, poor acoustic windows. 2. Underlying rhythm is sinus rhythm. 3. Overall EF around 55%. Wall motion abnormality cannot be examined due to poor delineation of the myocardial wall. 4. Mild LVH was seen. 5. RV size and EF were normal. 6. Atrial size was normal. 7. Mitral valve was poorly seen. 8. Aortic valve showed trace regurgitation, no stenosis. Doppler exam showed a good mean velocity of the aortic valve around 0.8 m/sec. Aortic valve area was 2.6 cm2. 9. Unable to calculate PA pressure. 10. No visible pericardial effusion. 11. IVC size was normal at 1.1 cm. IMPRESSION: 1. Suboptimal study with poor acoustic windows. 2. The underlying rhythm is sinus rhythm. 3. The overall EF is around 55%, cannot determine wall motion abnormality. 4. Mild LVH. 5. Normal RV size and EF. 6. Mitral valve was poorly seen. 7. Aortic valve showed no stenosis or regurgitation. 8. Unable to calculate PA pressure. 9. Unable to determine diastolic parameters. 10. No pericardial effusion, with normal IVC size at 1.1 cm. Marium Turner MD DR: LAVONNE/ellie JOB# [id number]
== END 2016-12-15 13:32 | disposition home or self-care (01) | DRG 247 ==
LOC: ER 10:18 → MS 12:02
PROVIDERS: ADMIT Internal Medicine; ATTEND Internal Medicine
PROC: 027034Z Dilation of Coronary Artery, One Artery with Drug-eluting Intraluminal Device, Percutaneous Approach (ICD-10-PCS; principal; 2016-12-14)
PROC: 4A023N7 Measurement of Cardiac Sampling and Pressure, Left Heart, Percutaneous Approach (ICD-10-PCS; 2016-12-14)
PROC: B2151ZZ Fluoroscopy of Left Heart using Low Osmolar Contrast (ICD-10-PCS; 2016-12-14)
PROC: B2111ZZ Fluoroscopy of Multiple Coronary Arteries using Low Osmolar Contrast (ICD-10-PCS; 2016-12-14)
PROC: 3E033PZ Introduction of Platelet Inhibitor into Peripheral Vein, Percutaneous Approach (ICD-10-PCS; 2016-12-14)
DX: T82.858A Stenosis of other vascular prosthetic devices, implants and grafts, initial encounter (principal); B02.9 Zoster without complications; I13.10 Hypertensive heart and chronic kidney disease without heart failure, with stage 1 through stage 4 chronic kidney disease, or unspecified chronic kidney disease; I25.110 Atherosclerotic heart disease of native coronary artery with unstable angina pectoris; E78.5 Hyperlipidemia, unspecified; N18.9 Chronic kidney disease, unspecified; Y83.1 Surgical operation with implant of artificial internal device as the cause of abnormal reaction of the patient, or of later complication, without mention of misadventure at the time of the procedure; J44.9 Chronic obstructive pulmonary disease, unspecified; Z87.891 Personal history of nicotine dependence; Z88.6 Allergy status to analgesic agent; Z88.5 Allergy status to narcotic agent; Z79.899 Other long term (current) drug therapy; Y92.89 Other specified places as the place of occurrence of the external cause; Z82.3 Family history of stroke; Z82.49 Family history of ischemic heart disease and other diseases of the circulatory system; Z82.5 Family history of asthma and other chronic lower respiratory diseases
CPT/HCPCS: 36415; 71010; 80048; 80053; 80061; 82550; 82553; 83880; 84443; 84484; 85025; 85379; 85610; 93005; 93307; 93458; 96372; 99152; 99153; 99285; C1769; C1887; C1894; C9600; J1644; J1650; J2250; J3010; J3490; J7030; J7512; Q9967; C1876

== ENCOUNTER → 2019-10-26 | Outpatient (CLI) | payer MEDICARE ==
[~2019-10-26] MED LIST changes: -ASPI-484 PO; +ASPI-485 PO; +TRAZ-163 PO; -TRAZ50TA18 PO; +[UNRECOGNIZED DRUG - CODE] PO
== END | disposition home or self-care (01) ==
LOC: RT 12:59
PROVIDERS: ATTEND Internal Medicine
DX: J44.9 Chronic obstructive pulmonary disease, unspecified (principal)
CPT/HCPCS: 94060

== ENCOUNTER → 2020-06-05 | Outpatient (CLI) | payer MEDICARE ==
[~2020-06-05] MED LIST changes: -LISI10TA2 PO; +LISI10TA20 PO
--- NOTE | 2020-06-05 10:50 | DIREP ---
PROCEDURE:US KIDNEYS-BILAT COMPARISON:None. INDICATIONS:HEMATURIA, PROTEINURA TECHNIQUE:Ultrasound examination was performed of the kidneys and bladder. FINDINGS: RIGHT KIDNEY:10.8 x 5.2 x 5.6 cm. Cortex: 1.0 cm LEFT KIDNEY: 10.2 x 5.2 x 4.9 cm. Cortex: 1.6 cm BLADDER (pre-void):3.1 x 4.5 x 4.8 cm. Volume 46.4 ml RIGHT KIDNEY: There is no hydronephrosis or suspicious cortical lesion. LEFT KIDNEY: There is no hydronephrosis or suspicious cortical lesion. BLADDER:Normal. No visible wall thickening, mass, or calculus. Bilateral ureteral jets visualized. OTHER:Negative. CONCLUSION:Normal examination. Dictated by: JOSEPH Physician on 06/05/2020 at 10:28 AM bs
--- NOTE | 2020-06-05 11:37 | DIREP ---
PROCEDURE:BONE DENSITY PERIPHERAL COMPARISON:None. INDICATIONS:AGE RELATED OSTEOPOROSIS TECHNIQUE:A dual photon bone densitometry was performed in the lumbar spine and in both the hips. FINDINGS:The bone mineral density is measured from L1 through L4 is 1.150 grams/centimeters squared. The standard deviation T-score is-0.4. The bone mineral density in the left femoral neck is 0.803 grams/centimeters squared. The standard deviation T-score is-1.7. The bone mineral density in the right femoral neck is 0.752 grams/centimeter squared. The standard deviation the T-score is-2.1. Based upon these values the patient has osteopenia. The 10 year FRAX probability is as follows: The patient has a 6.5% chance of a insufficiency hip fracture and 23.6% chance of a major osteoporotic fracture. CONCLUSION:Osteopenia. Ten year FRAX probability as above. Dictated by: Horace Marin MD on 06/05/2020 at 11:34 AM
== END | disposition home or self-care (01) ==
LOC: RAD 08:35
PROVIDERS: ATTEND Internal Medicine
DX: M85.88 Other specified disorders of bone density and structure, other site (principal); M81.0 Age-related osteoporosis without current pathological fracture; R31.9 Hematuria, unspecified; R80.9 Proteinuria, unspecified
CPT/HCPCS: 76770; 77080

== ENCOUNTER → 2020-12-18 | Outpatient (CLI) | payer MEDICARE ==
[2020-12-18 13:47] LABS: CALCIUM 9.2 mg/dL (8.4-10.5); CARBON DIOXIDE 32.1 mmol/L (20.0-32)
== END | disposition home or self-care (01) ==
LOC: LAB 13:16
PROVIDERS: ATTEND Internal Medicine Cardiovascular Disease
DX: I10 Essential (primary) hypertension (principal)
CPT/HCPCS: 36415; 80048

== ENCOUNTER → 2021-04-15 | Outpatient (CLI) | payer MEDICARE ==
--- NOTE | 2021-04-15 14:35 | DIREP ---
PROCEDURE:XRAY SHOULDER MIN 2 VWS-RT COMPARISON:None. INDICATIONS:SHOULDER PAIN FINDINGS: BONES:Postsurgical changes with acromioplasty of the distal right clavicle is seen. No fracture or other bony abnormality is seen. JOINTS:Normal glenohumeral and acromioclavicular joints. No evidence for dislocation. SOFT TISSUES:Normal. OTHER:Normal. CONCLUSION:Postsurgical changes with acromioplasty of the right clavicle. No fracture or other bony abnormality is seen. Dictated by: Camacho Amador M.D. on 04/15/2021 at 02:33 PM
--- NOTE | 2021-04-15 14:47 | DIREP ---
PROCEDURE:XRAY SHOULDER MIN 2 VWS-LT COMPARISON:None. INDICATIONS:SHOULDER PAIN FINDINGS: BONES:Normal. JOINTS:Normal glenohumeral and acromioclavicular joints. No evidence for dislocation. SOFT TISSUES:Normal. OTHER:Normal. CONCLUSION:Normal examination. Dictated by: Camacho Amador M.D. on 04/15/2021 at 02:45 PM
--- NOTE | 2021-04-15 14:57 | DIREP ---
PROCEDURE:XRAY WRIST MIN 3VW-LT COMPARISON:None. INDICATIONS:WRIST PAIN FINDINGS: BONES:Normal. JOINTS:Mild degenerative changes are seen in the 1st carpometacarpal joint. SOFT TISSUES:Normal. OTHER:No additional findings. CONCLUSION:Mild degenerative changes are demonstrated in the 1st carpometacarpal joint. The wrist is otherwise normal. Dictated by: Camacho Amador M.D. on 04/15/2021 at 02:54 PM
--- NOTE | 2021-04-15 15:26 | DIREP ---
PROCEDURE:XRAY HAND MIN 3 VW-RT COMPARISON:None. INDICATIONS:HAND PAIN FINDINGS: BONES:Normal. JOINTS:Mild degenerative changes are seen in the distal interphalangeal joints of the thumb and 2nd finger and proximal interphalangeal joint of the 2nd finger. SOFT TISSUES:Normal. OTHER:No additional findings. CONCLUSION:Mild degenerative changes are seen in the distal interphalangeal joints of the thumb and 2nd finger and proximal interphalangeal joint of the 2nd finger. Dictated by: Camacho Amador M.D. on 04/15/2021 at 03:23 PM
--- NOTE | 2021-04-15 15:33 | DIREP ---
PROCEDURE:XR SPINE CERVICAL 2 OR 3 VIEWS COMPARISON:None. INDICATIONS:CERVICALGIA TECHNIQUE:AP, lateral, swimmer's, and dens views of the cervical spine are provided. FINDINGS: ALIGNMENT:Minimal retrolisthesis is seen of C5 on C6. VERTEBRAE:Prominent anterior hypertrophic spurring is seen at C5-6. Right-sided facet arthropathy is seen at C4-5 and C5-6. DISK SPACES:Moderate disc space narrowing is seen at C5-6. CERVICAL RIBS:None. OTHER:Normal. CONCLUSION:Moderate spondylosis and degenerative disc disease are seen at C5-6. Dictated by: Camacho Amador M.D. on 04/15/2021 at 03:29 PM
--- NOTE | 2021-04-15 15:45 | DIREP ---
PROCEDURE:XRAY HAND MIN 3 VW-LT COMPARISON:[facility], , XRAY WRIST MIN 3VW-LT, 04/15/2021, 01:34 PM. INDICATIONS:HAND PAIN FINDINGS: BONES:Normal. JOINTS:Mild degenerative changes are seen in the 1st carpometacarpal joint and in the proximal and distal interphalangeal joints of the 2nd and 3rd fingers. SOFT TISSUES:Normal. OTHER:No additional findings. CONCLUSION:Mild degenerative changes are seen in the 1st carpometacarpal joint and in the proximal and distal interphalangeal joints of the 2nd and 3rd fingers. Dictated by: Camacho Amador M.D. on 04/15/2021 at 03:42 PM
--- NOTE | 2021-04-15 15:46 | DIREP ---
PROCEDURE:XRAY WRIST MIN 3VW-RT COMPARISON:None. INDICATIONS:WRIST PAIN FINDINGS: BONES:Normal. JOINTS:Normal. SOFT TISSUES:Normal. OTHER:No additional findings. CONCLUSION:Normal examination. Dictated by: Camacho Amador M.D. on 04/15/2021 at 03:44 PM
== END | disposition home or self-care (01) ==
LOC: RAD 13:21
PROVIDERS: ATTEND Internal Medicine
DX: M47.812 Spondylosis without myelopathy or radiculopathy, cervical region (principal); M19.042 Primary osteoarthritis, left hand; M19.041 Primary osteoarthritis, right hand; M19.032 Primary osteoarthritis, left wrist; M79.641 Pain in right hand; M79.642 Pain in left hand; M25.531 Pain in right wrist; M25.532 Pain in left wrist
CPT/HCPCS: 72040; 73030-LT; 73030-RT; 73110-LT; 73110-RT; 73130-LT; 73130-RT

== ENCOUNTER → 2021-07-13 | Outpatient (CLI) | payer MEDICARE ==
--- NOTE | 2021-07-13 15:39 | DIREP ---
PROCEDURE:MRI SPINE CERVICAL W/O COMPARISON:[facility], CR, XRAY SPINE CERVICAL 2-3VW, 04/15/2021, 01:34 PM. INDICATIONS:SPODYLOSIS WITH RADICULOPATHY CERVICAL REGION, DDD CERVICAL REGION TECHNIQUE:A variety of imaging planes and parameters were utilized for visualization of suspected pathology without contrast. FINDINGS: CRANIOCERVICAL AREA:Normal foramen magnum with no Chiari malformation. ALIGNMENT:Mild leftward curvature of the cervical spine. There is 2 mm grade 1 retrolisthesis of C5 on C6. VERTEBRA:No fracture or osseous lesions. Endplate edema at C5-C6 is likely degenerative in nature. SPINAL CORD:Normal size, contour, and signal intensity. PARASPINAL AREA:Normal with no visible mass. OTHER:No additional findings. CERVICAL DISC LEVELS: C2-C3:Small central disc protrusion. No significant spinal canal or neural foraminal stenosis. C3-C4:Severe right neural foraminal stenosis secondary to facet/uncovertebral hypertrophy. No significant spinal canal or left neural foraminal stenosis. C4-C5:Severe right and mild left neural foraminal stenosis secondary to facet/uncovertebral hypertrophy. No significant spinal canal stenosis. C5-C6:Severe disc space narrowing with grade 1 retrolisthesis. There is severe spinal canal and severe right and moderate left neural foraminal stenosis secondary to broad-based disc osteophyte complex and facet arthrosis. C6-C7:Moderate bilateral neural foraminal stenosis and mild spinal canal stenosis secondary to broad-based disc osteophyte complex. C7-T1:No significant disc/facet abnormality, spinal stenosis, or foraminal stenosis. CONCLUSION:Multilevel degenerative changes in the cervical spine as detailed above, most significant at C5-C6 with severe spinal canal and severe right and moderate left neural foraminal stenosis and grade 1 retrolisthesis at this level. Severe right neural foraminal stenoses are also seen at C3-C4 and C4-C5. No acute fracture or abnormal cord signal. Dictated by: Daniel Lazo M.D. on 07/13/2021 at 03:25 PM
== END | disposition home or self-care (01) ==
LOC: RAD 13:01
PROVIDERS: ATTEND Internal Medicine
DX: M47.22 Other spondylosis with radiculopathy, cervical region (principal); M48.02 Spinal stenosis, cervical region; M50.30 Other cervical disc degeneration, unspecified cervical region
CPT/HCPCS: 72141

== ENCOUNTER → 2021-12-23 | Outpatient (CLI) | payer MEDICARE ==
[~2021-12-23] MED LIST changes: +CLOP-28 PO; -CLOP75TA52 PO
[2022-01-20 10:07] LABS: BASOPHIL % 0.3 % (0.0-0.2); EOSINOPHIL # 0.2 10^3/uL (0.0-0.2); EOSINOPHIL % 2.4 % (0.0-5.0); LYMPHOCYTES # 2.52 10^3/uL1 (1.0-4.8); MEAN CORP HGB 32.6 pg (26-34); MONOCYTES # 0.4 10^3/uL (0.3-0.8); MONOCYTES % 5.4 % (5.0-12.0); NEUTROPHIL # 4.5 10^3/uL (1.8-7.7); NEUTROPHILS % 58.8 % (41.0-85.0); RED CELL DISTRIBUTION WIDTH 12.1 % (11.5-14.5)
[2022-01-20 10:44] LABS: CARBON DIOXIDE 28.5 mmol/L (20.0-32)
[2022-01-21 14:15] LABS: ESTRADIOL <5.0 pg/mL (.); FOLLICLE STIMULATING HORMONE 63.2 mIU/mL (.)
== END | disposition home or self-care (01) ==
LOC: LAB 12:34
PROVIDERS: ATTEND Internal Medicine
DX: I11.9 Hypertensive heart disease without heart failure (principal); E03.9 Hypothyroidism, unspecified; E55.9 Vitamin D deficiency, unspecified; D51.0 Vitamin B12 deficiency anemia due to intrinsic factor deficiency; D64.9 Anemia, unspecified; N95.1 Menopausal and female climacteric states; R73.01 Impaired fasting glucose
CPT/HCPCS: 36415; 80053; 80061; 82306; 82607; 82670; 82746; 83001; 83036; 84403; 84439; 84479; 85025; 85651; 86140

== ENCOUNTER 2022-04-13 10:54 | Emergency (ER) | payer MEDICARE ==
[~2022-04-13] VITALS: Ht 170.2 cm; Wt 77.1 kg
[~2022-04-13 10:54] MED LIST changes: +[UNRECOGNIZED DRUG - CODE] PO; -[UNRECOGNIZED DRUG - CODE] PO
--- NOTE | 2022-04-13 11:48 | NUR ---
ARRIVAL PT ARRIVED AMBULATORY TO ED 7 WITH C/O DYSPNEA AND DYSPHAGIA. PT HAS A GOITER ON HER THYROID. VITALS TAKEN AND DR NOTIFIED.
[2022-04-13 11:55] VITALS: BP 134/85
--- NOTE | 2022-04-13 11:58 | ER.PDOC ---
General Chief Complaint: Requesting Medical Care Stated Complaint: SOB TRAVEL OUT OF US: No Time seen by MD: 11:58 Source: patient Exam Limitations: no limitations History of Present Illness Initial Comments Pt had what sounds like an anterior cervical fusion 4-5 months ago during which pt says her surgeon identified a large goiter, and has recommended she be followed up therefor once she is far enough out from the surgery. History of thyroid removal, 90% per pt, many years ago. In the past few weeks has had what sounds like disordered swallowing and choking with eating. No stridor, some subjective dyspnea. Timing/Duration: 1 week (or more) Severity: mild, moderate Modifying Factors: improves with eating Allergies: Coded Allergies: aspirin (Verified Allergy, Severe, Anaphylaxis Shock, 09/10/16) morphine (Verified Allergy, Severe, THROAT WILL CLOSE,STOP BREATHING, 12/12/16) Home Meds Active Scripts Paroxetine Hcl (PAXIL) 20 Mg Tablet, 30 MG PO DAILY, #30 4 Refills Prov:CRUZITO GONZALEZ APRN 12/15/16 Simvastatin (ZOCOR) 80 Mg Tablet, 1 TAB PO DAILY, #30 TAB 4 Refills Prov:ANNI TAY MD 11/21/15 Reported Medications Sertraline Hcl (ZOLOFT) 100 Mg Tablet, 1 TAB PO DAILY, #30 TAB 5 Refills 09/10/16 Famotidine (PEPCID) 20 Mg Tablet, 1 TAB PO BIDAC, #60 TAB 3 Refills 09/10/16 Oxycodone Hcl/Acetaminophen (PERCOCET 7.5-325 MG TABLET) 1 Each Tablet, 1 TAB PO QID PRN for PAIN, #120 TAB 09/10/16 Trazodone Hcl (TRAZODONE HCL) 50 Mg Tablet, 1 TAB PO HS, #30 TAB 1 Refill 09/10/16 Clopidogrel Bisulfate (PLAVIX) 75 Mg Tablet, 1 TAB PO DAILY for ANTIPLATELET, #90 TAB 1 Refill 04/10/15 Levothyroxine Sodium (SYNTHROID) 125 Mcg Tablet, 1 TAB PO DAILY for THYROID, #30 TAB 5 Refills 04/10/15 Lisinopril (LISINOPRIL) 10 Mg Tablet, 1 TAB PO DAILY for BLOOD PRESSURE, #30 TAB 5 Refills 04/10/15 Metoprolol Succinate (TOPROL XL) 50 Mg Tab.er.24h, 1 TAB PO DAILY for BLOOD PRESSURE, #30 TAB 5 Refills 04/10/15 Past Medical History Medical History: no pertinent history Surgical History: cardiac cath, appendectomy, hysterectomy, neck, stent, shoulder, tubal, other (prior thyroid surgery) Family History Significant Family History: no pertinent family hx Social History Smoking: non-smoker Drug Use: none Reviewed Nursing Reviewed: Vital Signs, Abn. Noted, Nursing Assessment Review of Systems Constitutional: no symptoms reported EENTM: see HPI Respiratory: no symptoms reported, shortness of breath (subjective); denies stridor Cardiovascular: no symptoms reported Gastrointestinal: see HPI Genitourinary: no symptoms reported Musculoskeletal: no symptoms reported Skin: no symptoms reported Psychiatric/Neurological: no symptoms reported All Other Systems: Reviewed and Negative Physical Exam General Appearance: No Apparent Distress EENT: eyes nml inspection Neck: Supple, Other (no obvious palpable mass) Respiratory: chest non-tender, lungs clear, normal breath sounds (no stridor) CVS: reg rate & rhythm Gastrointestinal: Normal Bowel Sounds Extremities: Normal Range of Motion Neurologic/Psychiatric: No Motor/Sensory Deficits, Alert, Normal Mood/Affect Skin: Normal Color Results/Orders Results/Orders Orders - ZECHARIAH WOOD MD Ct Soft Tissue Neck Wo Contrst (04/13/22 11:59) Vital Signs Date Time Temp Pulse Resp B/P (MAP) Pulse Ox O2 Delivery O2 Flow Rate FiO2 04/13/22 11:55 98.5 58 18 134/85 (101) 95 Room Air* 0 21 04/13/22 11:55 98.5 58 18 04/13/22 11:55 98.5 [address] does not demonstrate any airway threat, or even identify a mass. May be dysphagia or an aspiration issue. Pt has an outpatient ENT followup scheduled, and a speech language pathology referral for the eating difficulties would be monique. ER DEPART Departure Time of Disposition: 13:14 Disposition: 01 HOME / SELF CARE / HOMELESS Impression: Primary Impression: Dysphagia Condition: Stable Patient Instructions: Dysphagia Referrals: WALE HUNT MD (PCP) PRIMARY CARE PROVIDER Additional Instructions: It's not entirely clear what's causing your problems here today. There may be problems coordinating your speech and swallowing muscles, so we recommend you be evaluated by a speech language pathologist for a swallowing exam. The mass seen by your surgeon is not obvious on the CT scan, and your appointment with the ENT surgeons may help further clarify this. Follow up or return especially if symptoms worsen. Duration or Time Spent with Pa: 15 min ZECHARIAH WOOD MD Apr 13, 2022 11:58
--- NOTE | 2022-04-13 12:46 | DIREP ---
PROCEDURE:CT SOFT TISSUE NECK W/O COMPARISON:None. INDICATIONS:dysphagia, difficulty breathing: goiter, assess for airway impingement TECHNIQUE:CT images were created without intravenous contrast material. Sagittal and coronal reconstructions are performed. FINDINGS: NASOPHARYNX:Fossae of Rosenmuller and torus tubarius are symmetric. ORAL CAVITY:No visible mass. OROPHARYNX:Faucial and lingual tonsils are symmetric. HYPOPHARYNX:No mass or other visible lesion. LARYNX:The vocal cords are symmetric and without mass. SINUSES:Limited views show no significant fluid or mucosal thickening. NECK GLANDS:Mildly atrophic thyroid gland. The parotid and submandibular glands are normal. LYMPH NODES:No pathological-appearing or enlarged lymph nodes. SKULL BASE:Foramina are symmetric without bony erosion. VASCULATURE:Mild scattered atherosclerosis. BONES:Surgical changes of ACDF at C5-C6. Mild reversal of the cervical lordosis. There is mild cervical spondylosis. OTHER:Mild centrilobular and paraseptal emphysema. CONCLUSION: 1. No mass, mass effect, or airway narrowing. 2. Mild centrilobular and paraseptal emphysema. Dictated by: Hernán Pradhan M.D. on 04/13/2022 at 12:40 PM
== END 2022-04-13 13:23 | disposition home or self-care (01) ==
LOC: ER 10:54
DX: R13.10 Dysphagia, unspecified (principal); Z90.49 Acquired absence of other specified parts of digestive tract; Z90.710 Acquired absence of both cervix and uterus; Z88.5 Allergy status to narcotic agent; Z88.6 Allergy status to analgesic agent
CPT/HCPCS: 70490; 99284

== ENCOUNTER → 2022-06-14 | Outpatient (CLI) | payer MEDICARE, MEDICAID ==
[~2022-06-14] MED LIST changes: -SIMV40TA PO; +[UNRECOGNIZED DRUG - CODE] PO
[2022-06-14 11:08] LABS: BASOPHIL % 0.1 % (0.0-0.2); EOSINOPHIL # 0.2 10^3/uL (0.0-0.2); EOSINOPHIL % 2.1 % (0.0-5.0); LYMPHOCYTES # 2.38 10^3/uL1 (1.0-4.8); LYMPHOCYTES % 28.8 % (24.0-44.0); MEAN CORP HGB 32.1 pg (26-34); MONOCYTES # 0.4 10^3/uL (0.3-0.8); MONOCYTES % 5.1 % (5.0-12.0); NEUTROPHIL # 5.3 10^3/uL (1.8-7.7); NEUTROPHILS % 63.9 % (41.0-85.0); PLATELET COUNT 202 10^3/uL (150-400); RED CELL DISTRIBUTION WIDTH 12.6 % (11.5-14.5)
[2022-06-14 11:24] LABS: BILIRUBIN,URINE NEGATIVE (NEGATIVE); UROBILINOGEN,URINE 0.2 E.U./dL (0.2)
[2022-06-14 12:38] LABS: CARBON DIOXIDE 26.4 mmol/L (20.0-32)
[2022-06-15 08:19] LABS: ESTRADIOL 11.6 pg/mL (.)
[2022-06-23 08:06] LABS: OPIATES Positive (.)
[2022-06-23 08:57] LABS: CODEINE Positive; CODEINE GC/MS CONF >2000 ng/mL
[2022-06-23 08:58] LABS: MORPHINE GC/MS CONF 666 ng/mL
== END | disposition home or self-care (01) ==
LOC: LAB 10:01
PROVIDERS: ATTEND Internal Medicine
DX: I10 Essential (primary) hypertension (principal); E03.4 Atrophy of thyroid (acquired); D51.0 Vitamin B12 deficiency anemia due to intrinsic factor deficiency; N95.1 Menopausal and female climacteric states; E55.9 Vitamin D deficiency, unspecified; R73.01 Impaired fasting glucose; M81.0 Age-related osteoporosis without current pathological fracture; E34.9 Endocrine disorder, unspecified; F11.288 Opioid dependence with other opioid-induced disorder; Z79.899 Other long term (current) drug therapy
CPT/HCPCS: 80307; 82306; 82670; 84403; 84481; 84443; 86800; 86376; 82728; 80061; 80053; 83721; 84439; 83550; 36415; 85025; 82043; 86140; 82570; 85651; 85045; 81001; 84436; 84480; G0480

== ENCOUNTER → 2022-08-02 | Outpatient (CLI) | payer MEDICARE, MEDICAID ==
[~2022-08-02] MED LIST changes: +ACET1TAB57 PO; +CIPR250T28 PO; +DICY20TA PO; +ESCI20TA8 PO; +GABA300C PO; +LIOT25TA4 PO; +LOSA100T15 PO; +PANT40TA6 PO; +QUET25TA5 PO; +ROSU40TA PO; +SPIR25TA PO; +TRAZ-168 PO; +VITA25006 PO
--- NOTE | 2022-08-02 16:18 | DIREP ---
PROCEDURE:US THYROID TECHNIQUE:Thyroid ultrasound was performed with a high-frequency transducer. COMPARISON:[facility], CT, CT SOFT TISSUE NECK W/O, 04/13/2022, 12:11 PM. INDICATIONS:E04.9 NONTOXIC GOITER FINDINGS: THYROID OVERVIEW Right lobe - size: 2.0 x 1.3 x 1.1 cm, heterogeneous, 0 nodules Isthmus - size: 0.2 cm, heterogeneous, 0 nodules Left lobe - size: Not measured x 0.9 x 0.7 cm, heterogeneous, 0 nodules THYROID NODULES -- No Reportable Nodules -- TI-RADS: 1 = Benign, 2 = Not Suspicious, 3 = Mildly Suspicious, 4 = Moderately Suspicious, 5 = Highly Suspicious Reference: 2017 JACR, ACR Thyroid Imaging, Reporting and Data System (TIRADS): White Paper of the ACR TI-RADS Committee. OTHER:No additional findings. CONCLUSION: Residual versus recurrent tissue Dictated by: JOSEPH Physician on 08/02/2022 at 11:47 AM ja
== END | disposition home or self-care (01) ==
LOC: RAD 08:45
PROVIDERS: ATTEND Surgery
DX: E04.9 Nontoxic goiter, unspecified (principal)
CPT/HCPCS: 76536

== ENCOUNTER 2022-08-03 10:48 | Day surgery (SDC) | payer MEDICARE, MEDICAID ==
[2022-08-02 09:17] VITALS: BP 99/64
[2022-08-02 10:23] LABS: BASOPHIL % 0.1 % (0.0-0.2); EOSINOPHIL % 0.1 % (0.0-5.0); LYMPHOCYTES # 2.03 10^3/uL1 (1.0-4.8); MEAN CORP HGB 32.3 pg (26-34); MONOCYTES # 1.1 10^3/uL (0.3-0.8); MONOCYTES % 7.9 % (5.0-12.0); NEUTROPHIL # 10.4 10^3/uL (1.8-7.7); NEUTROPHILS % 76.8 % (41.0-85.0); PLATELET COUNT 217 10^3/uL (150-400); RED CELL DISTRIBUTION WIDTH 12.6 % (11.5-14.5)
--- NOTE | 2022-08-02 10:23 | PCM.EKG ---
[facility] Test Date: 2022-08-02 Pat Name: ANTELMO KATZ Department: [facility] [place] Room: Gender: F Skin Lap Bonder: ANDREW BENÍTEZ : 1955 Requested By: JASIEL HEIN Order Number: [id number] Reading MD: Measurements Intervals [place] Rate: 60 P: 54 NM: 142 QRS: 2 QRSD: 78 T: 130 QT: 486 QTc: 486 Interpretive Statements Normal sinus rhythm ST & T wave abnormality, consider anterolateral ischemia Prolonged QT Compared to ECG 12/14/2016 06:40:49 ST (T wave) deviation now present Possible ischemia now present Prolonged QT interval now present Sinus bradycardia no longer present Please click the below link to view image of tracing.
[2022-08-02 10:39] LABS: CARBON DIOXIDE 26.1 mmol/L (20.0-32)
[~2022-08-03] VITALS: Ht 170.2 cm; Wt 76.2 kg
[~2022-08-03 10:48] MED LIST changes: -ACET1TAB57 PO; -CIPR250T28 PO; -DICY20TA PO; -ESCI20TA8 PO; -GABA300C PO; +KLOR-CON 10 PO ONE; +LACTATED RINGERS 1,000 ML IV SCH; +LACTATED RINGERS 1,000 ML ONE; -LIOT25TA4 PO; -LOSA100T15 PO; +MEFOXIN 2 GM in NS 100ML 100 ML IV ONE; +MEFOXIN ONE; +MOVIPREP POWDER PACKET PO STA; +NS 100ML 100 ML IV ONE; -PANT40TA6 PO; -QUET25TA5 PO; -ROSU40TA PO; -SPIR25TA PO; -TRAZ-168 PO; -VITA25006 PO
[2022-08-03 10:56] VITALS: BP 101/54
[2022-08-03] MEDS ORDERED: SPIR25TA PO (11:40)
[2022-08-03] MEDS ORDERED: TRAZ-168 PO (11:40)
[2022-08-03] MEDS ORDERED: PANT40TA6 PO (11:40)
[2022-08-03] MEDS ORDERED: TRAZ-163 PO (11:40)
[2022-08-03] MEDS ORDERED: LOSA100T15 PO (11:40)
[2022-08-03] MEDS ORDERED: ESCI20TA8 PO (11:40)
[2022-08-03] MEDS ORDERED: VITA25006 PO (11:40)
[2022-08-03] MEDS ORDERED: ACET1TAB57 PO (11:40)
[2022-08-03] MEDS ORDERED: ROSU40TA PO (11:40)
[2022-08-03] MEDS ORDERED: GABA300C PO (11:40)
[2022-08-03] MEDS ORDERED: QUET25TA5 PO (11:40)
[2022-08-03] MEDS ORDERED: LIOT25TA4 PO (11:40)
[2022-08-03] MEDS ORDERED: CIPR250T28 PO (11:40)
[2022-08-03] MEDS ORDERED: DICY20TA PO (11:40)
[2022-08-03] MEDS ORDERED: NS 1000 ML/KCL 40MEQ 1,000 ML IV ONE (12:00)
[2022-08-03] MEDS ORDERED: DILAUDID ONE (12:28)
[2022-08-03] MEDS ORDERED: DILAUDID IV ONE (12:30)
[2022-08-03] MEDS ORDERED: XYLOCAINE 2% 5ML VIAL ONE (12:56)
[2022-08-03] MEDS ORDERED: DIPRIVAN IV ONE (12:56)
[2022-08-03 14:02] VITALS: BP 100/54
[2022-08-03 14:12] VITALS: BP 100/58
[2022-08-03] MEDS ORDERED: LEVSIN ONE (14:19)
[2022-08-03 14:26] VITALS: BP 113/75
[2022-08-03 14:33] VITALS: BP 140/59
[2022-08-03 14:53] VITALS: BP 129/68
--- NOTE | 2022-08-03 17:44 | OPH ---
DATE OF SURGERY: 08/03/2022 DICTATOR NAME: Lev Platt DO PREOPERATIVE DIAGNOSES: * History of blood in the stool. * History of reflux disease. POSTOPERATIVE DIAGNOSES: * Gastritis. * Moderate to extensive diverticular disease of the colon. SURGEON: Lev Platt D.O. SILVERING DEPARTMENT SUPERVISOR: OR staff. ANESTHESIA: General by Rodrigo Beyer CRNA. PROCEDURES PERFORMED: * Esophagogastroduodenoscopy with biopsy. * Long flexible colonoscopy to the cecum. SPECIMENS: Gastric mucosa to path. ESTIMATED BLOOD LOSS: 7 mL. COUNTS: At the completion of the case, counts were correct per OR staff. DESCRIPTION OF PROCEDURE: The patient is a 67-year-old female, known from previous evaluation. Prior to procedure, informed consent was obtained. At the time of procedure, she was taken to the operative suite and placed in supine position. With appropriate monitoring in place, preprocedure safety checklist with timeout was completed with the assistance of the nursing service. The patient was repositioned in left lateral recumbent position. With excellent sedation, esophagogastroduodenoscope was advanced transorally with insufflation distally into the duodenum. Once the second portion of the duodenum was adequately visualized, scope was slowly withdrawn to facilitate visualization of the duodenal bulb and the distal stomach. The body of stomach and the distal stomach showed gastritis and biopsies were obtained. The retroflex maneuver was performed, the cardia and fundus were essentially within normal limits. Camera was reduced, stomach was decompressed. Scope was slowly withdrawn. Distal, mid, proximal esophagus were essentially within normal limits. In the cartilage associated with the vocal cords, there was noted to be markedly less movement associated with the left cord. On careful inspection, there is no obvious mass or lesion identified. Scope was removed. Procedure discontinued. The patient remains in the OR. Timeout was previously completed. A rectal exam is performed and there are no masses. Next, colonoscope was advanced transanally with insufflation proximally. In the sigmoid region, there was noted to be an area that is difficult to insufflate. However, with gentle manipulation of the abdomen and the scope, it is ultimately advanced to the level of the cecum. Quality of prep was adequate, although not excellent. Within the limitations of the prep, cecum was visualized including the appendiceal orifice. Ileocecal valve is inspected. Ascending colon, hepatic flexure, transverse colon, splenic flexure showed no overt pathology. In the descending colon and sigmoid colon, there is a moderate amount of diverticular disease identified. Scope was withdrawn through the remainder of the descending colon, sigmoid colon and rectum. There were no identified masses, polyps, or AVMs. At the level of 5 cm in the rectum, camera was retroflexed and reinserted. Anal verge is visualized within normal limits. Camera was reduced, colon was decompressed and colonoscope was removed. The patient tolerated these procedures well. There were no acute complications noted. Jose Mendosa. Lev Platt D.O. DR: LISA TID: [id number] RECEIPT: [id number] cc: Maynor Steinberg MD
== END 2022-08-03 15:00 | disposition home or self-care (01) ==
LOC: SDC 10:48
PROVIDERS: ATTEND Surgery
DX: K92.1 Melena (principal); K21.9 Gastro-esophageal reflux disease without esophagitis; K57.30 Diverticulosis of large intestine without perforation or abscess without bleeding; K29.50 Unspecified chronic gastritis without bleeding; I10 Essential (primary) hypertension; F41.9 Anxiety disorder, unspecified; F32.A Depression, unspecified; E78.5 Hyperlipidemia, unspecified; E03.9 Hypothyroidism, unspecified; E04.9 Nontoxic goiter, unspecified; Z88.8 Allergy status to other drugs, medicaments and biological substances; Z98.890 Other specified postprocedural states; Z90.49 Acquired absence of other specified parts of digestive tract; Z98.1 Arthrodesis status; Z98.51 Tubal ligation status; Z79.899 Other long term (current) drug therapy; Z79.890 Hormone replacement therapy; Z95.5 Presence of coronary angioplasty implant and graft
CPT/HCPCS: 80053; 85025; 36415; 85610; 85730; 93005; 45378; 43239; 88342; 88305; J7120; J0694 ×2; J1170; J3490; J2001; J3480

== ENCOUNTER → 2022-10-12 | Outpatient (CLI) | payer MEDICARE, MEDICAID ==
[~2022-10-12] MED LIST changes: +ACET1TAB57 PO; +CIPR250T28 PO; +DICY20TA PO; +ESCI20TA8 PO; +GABA300C PO; -KLOR-CON 10 PO ONE; -LACTATED RINGERS 1,000 ML IV SCH; -LACTATED RINGERS 1,000 ML ONE; +LIOT25TA4 PO; +LOSA100T15 PO; -MEFOXIN 2 GM in NS 100ML 100 ML IV ONE; -MEFOXIN ONE; -MOVIPREP POWDER PACKET PO STA; -NS 100ML 100 ML IV ONE; +PANT40TA6 PO; +QUET25TA5 PO; +ROSU40TA PO; +SPIR25TA PO; +TRAZ-168 PO; +VITA25006 PO
[2022-10-12 13:06] LABS: BILIRUBIN,URINE NEGATIVE (NEGATIVE); LEUKOCYTE ESTERASE ,URINE TRACE (NEGATIVE); NITRATE,URINE NEGATIVE (NEGATIVE); PH,URINE 6.5 (4.5-8.0); UROBILINOGEN,URINE 0.2 E.U./dL (0.2)
[2022-10-12 13:16] LABS: BASOPHIL % 0.1 % (0.0-0.2); EOSINOPHIL # 0.1 10^3/uL (0.0-0.2); EOSINOPHIL % 1.3 % (0.0-5.0); HEMATOCRIT(ML) 45.8 % (36.0-46.0); HEMOGLOBIN 15.2 g/dL (12.0-15.0); LYMPHOCYTES # 1.83 10^3/uL1 (1.0-4.8); LYMPHOCYTES % 25.4 % (24.0-44.0); MEAN CORP HGB 31.6 pg (26-34); MEAN CORP HGB CONCENTRATION 33.2 g/dL (33-36.5); MEAN CORP VOLUME 95.2 fL (78-100); MONOCYTES # 0.3 10^3/uL (0.3-0.8); MONOCYTES % 4.7 % (5.0-12.0); NEUTROPHIL # 4.9 10^3/uL (1.8-7.7); NEUTROPHILS % 68.5 % (41.0-85.0); PLATELET COUNT 175 10^3/uL (150-400); RED BLOOD CELL 4.81 10^6/uL (4.00-5.20); RED CELL DISTRIBUTION WIDTH 12.4 % (11.5-14.5); WHITE BLOOD CELL 7.2 10^3/uL (4.5-11.0)
[2022-10-12 13:19] LABS: APPEARANCE,URINE CLEAR; UA COLOR YELLOW
[2022-10-12 13:22] LABS: +ADD MANUAL DIFF(NO CHRG) NO
[2022-10-12 13:37] LABS: ALBUMIN(ML) 3.6 g/dL (3.4-5.0); ANION GAP 12.9; C-REACTIVE PROTEIN 0.29 mg/dL (0.00-5.00); CARBON DIOXIDE 27.6 mmol/L (20.0-32); CREATININE SERUM 0.96 mg/dL (0.59-1.40); EST GFR, NON-AA 58.3 (>/=60); POTASSIUM 3.5 mmol/L (3.6-5.2)
[2022-10-12 13:38] LABS: ALBUMIN/GLOBULIN RATIO 0.9; CALCIUM 9.2 mg/dL (8.4-10.5); LDL/HDL RATIO 1.3; URIC ACID 4.5 mg/dL (2.6-6.0)
[2022-10-13 07:26] LABS: ESTRADIOL 5.4 pg/mL (.); FOLLICLE STIMULATING HORMONE 76.3 mIU/mL (.); TRIIODOTHYRONINE (TOTALT3-REF) 124 ng/dL (71-180)
[2022-10-13 11:17] LABS: THYROID PEROXIDASE (TPO) AB <9 IU/mL (0-34)
[2022-10-13 16:05] LABS: UAMPH METHAMP(SCRN) NEGATIVE (co1000ng/mL); UR METHADONE SCRN NEGATIVE (c/o300ng/mL); UR PHENCYCLIDINE (PCP) SCRN NEGATIVE (c/o 25ng/mL); UR TETRAHYDROCANNABINOL SCRN NEGATIVE (c/o 50ng/mL)
[2022-10-13 16:21] LABS: UR MDMA (ECSTASY) SCRN PRESUMPTIVE POSITIVE (c/o300ng/mL); UR OPIATE SCRN PRESUMPTIVE POSITIVE (c/o300ng/mL)
[2022-10-14 05:15] LABS: THYROGLOBULIN ANTIBODY 1.1 IU/mL (0.0-0.9)
== END | disposition home or self-care (01) ==
LOC: LAB 12:12
PROVIDERS: ATTEND Internal Medicine
DX: D51.0 Vitamin B12 deficiency anemia due to intrinsic factor deficiency (principal); D64.9 Anemia, unspecified; E03.4 Atrophy of thyroid (acquired); E64.9 Sequelae of unspecified nutritional deficiency; E55.9 Vitamin D deficiency, unspecified; I10 Essential (primary) hypertension; R82.90 Unspecified abnormal findings in urine; I51.9 Heart disease, unspecified; J44.9 Chronic obstructive pulmonary disease, unspecified; M05.9 Rheumatoid arthritis with rheumatoid factor, unspecified; F11.288 Opioid dependence with other opioid-induced disorder; Z79.899 Other long term (current) drug therapy
CPT/HCPCS: 36415; 80053; 80061; 80307; 81001; 82043; 82306; 82570; 82607; 82670; 82728; 83036; 83550; 83721; 83970; 84403; 84436; 84439; 84443; 84480; 84481; 84550; 85025; 85045; 85651; 86140; 86376; 86800; 87086

== ENCOUNTER → 2022-11-19 | Outpatient (CLI) | payer MEDICARE, MEDICAID | END | disposition home or self-care (01) | LOC: RAD 12:21 | PROVIDERS: ATTEND Anesthesiology | DX: M47.814 Spondylosis without myelopathy or radiculopathy, thoracic region (principal) | CPT/HCPCS: 72072 ==